=== PATIENT | female | born 1960 | race Caucasian/White ===

== ENCOUNTER 2016-10-10 20:36 | Emergency (ER) | payer OTHER ==
[2016-10-10 20:56] VITALS: BP 168/69; PULSE 62; TEMP 97.8; BMI 47.5
--- NOTE | 2016-10-10 20:59 | PDOC ---
History of Present Illness - History of Present Illness Initial Comments: 10/10/16 21:25 The patient is a 56 year old female, with no significant past medical history, who presents to the emergency department with pain to her right elbow, left shoulder, lower back and neck pain s/p falling on 10/06/16. The patient states a clear mat slipped from under her at work and fell onto her right elbow. She states she fell straight down, also hitting the back of her head on the wall in a whip-lash motion. She denies loss of consciousness. She denies pain to her head following the incident but reports a soreness to the back of her neck. She states her neck pain does not radiate to her upper extremities, however, she does report pain to her left shoulder from hitting the shoulder on the wall. 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 She denies lower extremity numbness or tingling She denies chest pain, shortness of breath, headache and dizziness. She denies fever, chills, nausea, vomit, diarrhea and constipation. She denies dysuria, frequency, urgency and hematuria. PAST MEDICAL HISTORY: no significant history PAST SURGICAL HISTORY: no significant history FAMILY HISTORY: no pertinent history SOCIAL HISTORY: Pt lives with family and is employed. MEDICATIONS: reviewed ALLERGIES: As per nursing notes ROS General: No fevers or chills, no weakness, no weight loss HEENT: No change in vision. No sore throat,. No ear pain CardioVascular: No chest pain or shortness of breath Respiratory:No cough, or wheezing. Gastrointestinal: no nausea, vomiting, diarrhea or constipation, No rectal bleeding Genitourinary: No dysuria, hematuria, or frequency Musculoskeletal: (+) right elbow and left shoulder pain. posterior neck and low back discomfort. No joint swelling Neurologic: No headache, vertigo, dizziness or loss of consciousness Psychiatric: nor depression Skin: No rashes or easy bruising Endocrine: no increased thirst or abnormal weight change Allergic: no skin or latex allergy All other systems reviewed and normal Physical Exam: General: Well-nourished well-developed individual, no acute distress HEENT: Throat: Normal, tonsils normal, no erythema or exudate Neck: Supple, no meningeal signs, no lymphadenopathy Eyes::Pupils equal reactive and round, extraocular motion intact Chest: Nontender to palpation Cardiac: S1-S2 normal, regular rate and rhythm, no murmurs rubs or gallops Respiratory: Lungs clear to auscultation bilateral Abdomen: Soft, non-distended, normal bowel sounds, nontender to palpation diffusely Extremities: (+) ttp to superior left shoulder and right medial elbow. No cervical, thoracic or lumbar tenderness to palpation Warm, dry, no cyanosis, clubbing, or edema Skin: (+) incidental moderate eczema noted in all extremities. Neuro: Alert and oriented x3, nonfocal exam, grossly intact, normal gait Psych: Normal mood and affect <Bre Franco - Last Filed: 10/10/16 21:39> - General History Source: Patient Exam Limitations: No Limitations - History of Present Illness Initial Comments: 10/10/16 22:22 A portion of this note was documented by scribe services under my direction. I have reviewed the details of the note, within reason, and agree with the documentation. The case summary and management plan written by me. X-rays reviewed by me Left shoulder no acute fracture or dislocation Right elbow no acute fracture dislocation Assessment and plan: This is a 56-year-old female who fell 4 days ago and now comes in for evaluation. Patient had some soreness of her back and neck however no bony tenderness. There was some bony tenderness of her right elbow and left shoulder so x-rays were done that were negative for any acute pathology. Patient told to continue to take Aleve and follow-up with her primary care doctor as needed. Patient discharged home. <Clyde Antoine I - Last Filed: 10/10/16 22:24> - General Chief Complaint: Injury Stated Complaint: FALL Time Seen by Provider: 10/10/16 20:58 Past History <Bre Franco - Last Filed: 10/10/16 21:39> - Past Medical History HTN: Yes - Surgical History Abdominal Surgery: Yes (UTERINE EMBOLIZATION 2011) - Immunization History Immunization Up to Date: Yes - Psycho/Social/Smoking Cessation Hx Anxiety: No Suicidal Ideation: No Smoking Status: Yes Smoking History: Never smoked Number of Cigarettes Smoked Daily: 0 <Clyde Antoine I - Last Filed: 10/10/16 22:24> - Past Medical History Allergies/Adverse Reactions: Allergies Allergy/AdvReac Type Severity Reaction Status Date / Time Penicillins Allergy Verified 06/18/12 12:16 Home Medications: Ambulatory Orders Atenolol [Tenormin] 100 mg PO DAILY 06/18/12 Metformin HCl 500 mg PO BID 10/10/16 Naproxen Sodium [Aleve] 440 mg PO ONCE 10/10/16 *Physical Exam - Vital Signs Last Vital Signs Temp Pulse Resp BP Pulse Ox 97.8 F 62 16 168/69 97 10/10/16 20:54 10/10/16 20:54 10/10/16 20:54 10/10/16 20:54 10/10/16 20:54 <Bre Franco - Last Filed: 10/10/16 21:39> - Vital Signs Last Vital Signs Temp Pulse Resp BP Pulse Ox 97.8 F 62 16 168/69 97 10/10/16 20:54 10/10/16 20:54 10/10/16 20:54 10/10/16 20:54 10/10/16 20:54 <Clyde Antoine I - Last Filed: 10/10/16 22:24> *DC/Admit/Observation/Transfer - Attestations Scribe Attestion: 10/10/16 21:27 Documentation prepared by Bre Franco, acting as medical laboratory technicians for Clyde Antoine MD <Bre Franco - Last Filed: 10/10/16 21:39> - Discharge Dispostion Admit: No <Clyde Antoine I - Last Filed: 10/10/16 22:24> Diagnosis at time of Disposition: Strain of left shoulder Qualifiers: Encounter type: initial encounter Qualified Code(s): S46.912A - Strain of unspecified muscle, fascia and tendon at shoulder and upper arm level, left arm , initial encounter Strain of right elbow Qualifiers: Encounter type: initial encounter Qualified Code(s): S56.911A - Strain of unspecified muscles, fascia and tendons at forearm level, right arm, initial encounter Back strain Qualifiers: Encounter type: initial encounter Qualified Code(s): S39.012A - Strain of muscle, fascia and tendon of lower back, initial encounter - Discharge Dispostion Disposition: HOME Condition at time of disposition: Stable - Referrals Referrals: STAFF,NOT ON [Primary Care Provider] - - Patient Instructions Additional Instructions: Your x-rays were all negative for any acute fractures or pathology Tylenol or Aleve as needed for the pain. Return to the emergency department immediately with ANY new, persistent or worsening symptoms. Continue any medications as previously prescribed by your physician. You should follow up with your primary doctor as soon as possible regarding today's emergency department visit. . Please make sure your doctor reviews the results of your emergency evaluation. Thank you for coming to the Emergency Department today for your care. It was a pleasure to see you today. Please note that your evaluation is INCOMPLETE until you follow-up with your doctor.
== END 2016-10-10 22:27 | disposition home or self-care (01) ==
LOC: FER 20:36
DX: S46.912A Strain of unspecified muscle, fascia and tendon at shoulder and upper arm level, left arm, initial encounter (principal); S56.911A Strain of unspecified muscles, fascia and tendons at forearm level, right arm, initial encounter; S39.012A Strain of muscle, fascia and tendon of lower back, initial encounter; W18.39XA Other fall on same level, initial encounter; Y93.89 Activity, other specified; Y92.9 Unspecified place or not applicable; Y99.0 Civilian activity done for income or pay; I10 Essential (primary) hypertension
CPT/HCPCS: 73030-TC-LT; 73070-TC-RT; 99281-25

== ENCOUNTER 2019-01-30 16:57 | Inpatient (IN) | payer OTHER ==
[2019-01-30] MEDS ORDERED: SODIUM CHLORIDE 1,000 ML IV STA (17:24)
--- NOTE | 2019-01-30 17:43 | PDOC ---
History of Present Illness - General History Source: Patient Exam Limitations: No Limitations - History of Present Illness Initial Comments: 01/30/19 17:40 58y F with PMH of Plaque Psoriasis, HTN, NIDDM, HLD presenting to ED with complaints of malaise, fever and urinary symptoms. She started Taltz therapy for psoriasis 3w ago on 01/07 and got injections again last week. She says that a day after the injections last week she had fevers and generalized malaise. This resolved on its own and she went to work Sunday and Sunday without any symptoms. Yesterday she states she had a fever of 101 at night and a low grade fever this AM. Also endorses urinary urgency and dysuria this AM. Denies cough, chest pain, headache, congestion, sore throat, back pain, n/v/d, abdominal pain , sick contacts. She works as a dentist. PMD: PMH: see hpi Meds: see med reca Allergies: PCN (hives) <Nissa Olson - Last Filed: 01/30/19 19:13> <Shantel García - Last Filed: 02/01/19 07:37> - General Chief Complaint: Allergic Reaction Stated Complaint: FEVER. REACTION TO TALTZ? Time Seen by Provider: 01/30/19 17:12 Past History - Past Medical History COPD: No Diabetes: Yes HTN: Yes Hypercholesterolemia: Yes Other medical history: PSORIASIS - Surgical History Abdominal Surgery: Yes (UTERINE EMBOLIZATION 2011) Appendectomy: Yes - Immunization History Immunization Up to Date: Yes - Psycho Social/Smoking Cessation Hx Smoking Status: Yes Smoking History: Never smoked Number of Cigarettes Smoked Daily: 0 Hx Alcohol Use: No Drug/Substance Use Hx: No <Nissa Olson - Last Filed: 01/30/19 19:13> <Shantel García - Last Filed: 02/01/19 07:37> - Past Medical History Allergies/Adverse Reactions: Allergies Allergy/AdvReac Type Severity Reaction Status Date / Time Penicillins Allergy Verified 01/30/19 17:22 Home Medications: Ambulatory Orders Atenolol [Tenormin] 100 mg PO DAILY 06/18/12 Naproxen Sodium [Aleve] 440 mg PO ONCE 10/10/16 metFORMIN HCL [Metformin HCl] 500 mg PO BID 10/10/16 Atorvastatin Ca [Lipitor] 20 mg PO DAILY 01/30/19 Hctz 25Mg/Triamterene [Dyazide 25/37.5MG -] 1 cap PO DAILY 01/30/19 Ixekizumab [Taltz Autoinjector] 80 mg SQ ONCE 01/30/19 Ixekizumab [Taltz Autoinjector] 160 mg SQ ONCE 01/30/19 Losartan Potassium 50 mg PO HS 01/30/19 Sulfamethoxazole/Trimethoprim [Bactrim Ds Tablet] 1 each PO BID 10 Days #20 tablet 01/30/19 Review of Systems - Review of Systems Constitutional: Yes: Chills, Fever, Loss of Appetite, Malaise HEENTM: No: Symptoms Reported Respiratory: No: Symptoms reported Cardiac (ROS): No: Symptoms Reported ABD/GI: Yes: Nausea : Yes: See HPI Musculoskeletal: No: Symptoms Reported Integumentary: No: Symptoms Reported Neurological: No: Symptoms reported <Nissa Olson - Last Filed: 01/30/19 19:13> *Physical Exam - Vital Signs Last Vital Signs Temp Pulse Resp BP Pulse Ox 99.3 F 64 16 119/52 L 98 01/30/19 17:10 01/30/19 17:10 01/30/19 17:10 01/30/19 17:10 01/30/19 17:10 - Physical Exam General Appearance: Yes: Appropriately Dressed, Obese. No: Apparent Distress HEENT: positive: EOMI, THERESA, Pharynx Normal Neck: positive: Trachea midline, Supple. negative: Lymphadenopathy (R), Lymphadenopathy (L) Respiratory/Chest: positive: Lungs Clear, Normal Breath Sounds. negative: Crackles, Rales, Rhonchi, Stridor, Wheezing Cardiovascular: positive: Regular Rhythm, Regular Rate, S1, S2. negative: Edema , JVD, Murmur Vascular Pulses: Dorsalis-Pedis (R): 2+, Doralis-Pedis (L): 2+ Gastrointestinal/Abdominal: positive: Normal Bowel Sounds, Soft. negative: Guarding, Rebound, Tenderness Musculoskeletal: negative: CVA Tenderness Extremity: negative: Pedal Edema, Swelling, Calf Tenderness Integumentary: positive: Normal Color, Dry, Warm. negative: Mottled, Petechiae , Rash Neurologic: positive: sleeper cutter II-XII NML intact, Fully Oriented, Alert, Normal Mood/ Affect, Normal Response, Motor Strength 5/5 <Nissa Olson - Last Filed: 01/30/19 19:13> - Vital Signs Last Vital Signs Temp Pulse Resp BP Pulse Ox 97.9 F 69 18 147/56 L 100 02/01/19 06:00 02/01/19 06:00 02/01/19 06:00 02/01/19 06:00 02/01/19 06:00 <GarcíaShantel Ryan - Last Filed: 02/01/19 07:37> ED Treatment Course - LABORATORY CBC & Chemistry Diagram: 01/30/19 17:50 01/30/19 17:50 - RADIOLOGY Radiology Studies Ordered: Category Date Time Status CHEST PA & LAT [RAD] Stat Radiology 01/30/19 17:24 Ordered <Nissa Olson - Last Filed: 01/30/19 19:13> - LABORATORY CBC & Chemistry Diagram: 01/31/19 07:25 01/31/19 07:25 - ADDITIONAL ORDERS Additional order review: 01/30/19 18:30 Blood Culture - Preliminary Blood - Peripheral Venous NO GROWTH OBTAINED AFTER 24 HOURS, INCUBATION TO CONTINUE FOR 4 DAYS. 01/30/19 18:45 Blood Culture - Preliminary Blood - Peripheral Venous NO GROWTH OBTAINED AFTER 24 HOURS, INCUBATION TO CONTINUE FOR 4 DAYS. 01/30/19 17:50 RBC 3.96 MCV 89.3 MCHC 33.2 RDW 13.3 MPV 8.3 Neutrophils % 80.5 Lymphocytes % 10.6 Monocytes % 6.5 Eosinophils % 0.2 Basophils % 2.2 H - Medications Given in the ED: ED Medications Discontinued Medications Generic Name Dose Route Start Last Admin Trade Name Estebanq PRN Reason Stop Dose Admin Acetaminophen 975 mg 01/30/19 19:12 01/30/19 19:20 Tylenol - PO 01/30/19 19:13 975 mg ONCE ONE Administration Acetaminophen 1,000 mg 01/31/19 06:52 01/31/19 07:03 Ofirmev Injection - IVPB 01/31/19 06:53 1,000 mg ONCE ONE Administration Acetaminophen 1,000 mg 01/31/19 21:30 01/31/19 21:21 Ofirmev Injection - IVPB 01/31/19 21:31 1,000 mg ONCE ONE Administration Sodium Chloride 1,000 mls @ 1,000 mls/hr 01/30/19 17:24 01/30/19 18:15 Normal Saline - IV 01/30/19 18:23 1,000 mls/hr ASDIR STA Administration Ceftriaxone Sodium 1,000 mg/ 50 mls @ 100 mls/hr 01/30/19 18:40 01/30/19 18: 53 Dextrose IVPB 01/30/19 19:09 Not Given ONCE ONE Ondansetron HCl 4 mg 01/30/19 18:15 01/30/19 18:30 Zofran Injection IVPB 01/30/19 18:16 4 mg ONCE ONE Administration Trimethoprim/Sulfamethoxazole 1 each 01/30/19 18:55 01/30/19 19:10 Bactrim Ds - PO 01/30/19 18:56 1 each ONCE ONE Administration <Shantel García - Last Filed: 02/01/19 07:37> Medical Decision Making - Medical Decision Making 01/30/19 18:30 58y F presenting to ED with complaints of fever and malaise. Is currently on interleukin monoclonal antibody therapy 80mg with last dose 1w ago. gets therapy q2W. ddx includes but not limited to sepsis, uti, uri, fungal infection, viral syndrome. low suspicion for flu. orderd cbc, cmp, ua, ucx, cxr iv fluids. urines have LE, bili, 2+ protein and ketones. wbc 18. chem hemolyzed, will redraw with blood cultures. cxr: no infiltrate or consolidations. 01/30/19 19:01 UA positive for infection. given that patient is on immunomodulator therapy, has fever, white count and source, will benefit from admission for iv abx. pt refusing to stay. pt warned about adverse events from leaving hospital including multi organ failure, sepsis, hematogenous spread of infection, abscess , . pt understands and wants to leave. Will give Bactrim here in ED send rx to pharmacy. will give return precautions. <Nissa Olson - Last Filed: 01/30/19 19:13> Discharge - Discharge Information Problems reviewed: Yes <Nissa Olson - Last Filed: 01/30/19 19:13> <Shantel García - Last Filed: 11/02/19 07:37> - Discharge Information Clinical Impression/Diagnosis: Malaise Fever Qualifiers: Fever type: unspecified Qualified Code(s): R50.9 - Fever, unspecified UTI (urinary tract infection) Qualifiers: Urinary tract infection type: site unspecified Hematuria presence: without hematuria Qualified Code(s): N39.0 - Urinary tract infection, site not specified Condition: Stable - Patient Discharge Instructions Additional Instructions: Discharge instructions for patients AMA you are choosing to leave against medical advice (AMA) you have capacity to make medical decisions. you are of sound mind and competent to refuse medical care. you demonstrate a normal mental capacity to make decisions regarding their healthcare. The patient is clinically sober and does not appear to be under the influence of any illicit drugs at this time. you have been advised of the risks, in layman terms, of leaving AMA which include, but are not limited to cardiac arrest, severe infection, blood stream infection, dehydration, worsening bleeding, liver failure, arrhythmia, respiratory failure, delay in diagnosis and management, loss of current lifestyle, loss of functional status, multiorgan failure, coma, severe disability and . Alternatives have been offered - you are given referrals for specialists to see for your presentation. you have been advised that should they change their mind they are welcome to return to this hospital, or any other , at any time. you understand that in no way does an AMA discharge mean that I do not want them to have the best medical care available. To this end, I have provided appropriate prescriptions, referrals, and discharge instructions. you signed AMA paperwork. The above discussion was witnessed by another member of staff, CYNDY
[2019-01-30 18:01] LABS: BASO % 2.2 % (0-2.0); EOS % 0.2 % (0-4.5); HEMATOCRIT 35.4 % (32.4-45.2); HEMOGLOBIN 11.7 GM/dl (10.7-15.3); LYMPH % 10.6 % (8-40); MCH 29.6 pg (25.7-33.7); MCHC 33.2 g/dl (32.0-36.0); MEAN CELL VOLUME 89.3 fl (80-96); MEAN PLT VOLUME 8.3 fl (7.5-11.1); MONO % 6.5 % (3.8-10.2); NEUT % 80.5 % (42.8-82.8); PLATELET COUNT 304 K/MM3 (134-434); RBC 3.96 M/mm3 (3.60-5.2); RDW 13.3 % (11.6-15.6); WHITE BLOOD COUNT 18.2 K/mm3 (4.0-10.8)
[2019-01-30] MEDS ORDERED: ONDANSETRON 4 MG/2 ML VIAL IVPB ONE (18:15)
[2019-01-30] MEDS ORDERED: ONDANSETRON 4 MG/2 ML VIAL ONE (18:20)
--- NOTE | 2019-01-30 18:21 | PDOC ---
Attending Attestation - Resident Resident Name: WhitneyNissa - ED Attending Attestation I have performed the following: I have examined & evaluated the patient, The case was reviewed & discussed with the resident, I agree w/resident's findings & plan - HPI HPI: 01/30/19 18:21 58y F with PMH of Plaque Psoriasis, HTN, NIDDM, HLD presenting to ED with complaints of malaise, fever and urinary symptoms. She started Taltz therapy ( interleukin inhibitor) for psoriasis 3w ago on 01/07 and got injections again last week. She says that a day after the injections last week she had fevers and generalized malaise. Yesterday she states she had a fever of 101 at night and a low grade fever this AM. Also endorses urinary urgency and dysuria this AM. Denies cough, chest pain, headache, congestion, sore throat, back pain, n/v/ d, abdominal pain, sick contacts or travel history - Physicial Exam PE: 01/30/19 18:22 Agree with the resident's HPI and PE as documented in the electronic medical record. NAD, well appearing, EOMI, PERRL, nl conjunctiva, anicteric; neck supple. lungs clear, RRR, abdomen soft nontender, obese. no rebound, guarding. Back nontender. ARREDONDO x4, no focal neuro deficits. No peripheral edema. normal color for ethnicity, WWP. no rash 01/30/19 18:52 - Medical Decision Making 01/30/19 18:22 Vital Signs Temp Pulse Resp BP Pulse Ox 99.3 F 64 16 119/52 L 98 01/30/19 17:10 01/30/19 17:10 01/30/19 17:10 01/30/19 17:10 01/30/19 17:10 Vital signs noted for low-grade fevers, otherwise normotensive, normal sats and no tachycardia noted. Differential diagnosis for fever includes UTI, pneumonia , viral syndrome, bacteremia, pyelonephritis, medication side effect. electrolyte/metabolic derangements. She is on a new immunosuppressant drug called Taltz with a side effect profile that can increase potential risk for infection. Will obtain cultures of urine and blood, basic labs and reassess. Chest x-ray appears clear negative for any kind of infection or pneumonia. Leukocytosis is noted at 18,000, no priors to compare to which could be an indicator for infection/inflammation. Laboratory results noted for leukocytosis. Urinalysis appears to correlate with urinary tract infection. She has no abdominal tenderness or CVA tenderness to suggest upper ascending infection. Cultures have been drawn will pend. She is also allergic to cephalosporins due to cross-reactivity with penicillin's where she gets hives so will treat with Bactrim instead. Patient does have some risk factors for severe systemic infection given her fever and immunocompromise state and leukocytosis due to her diabetes, plaque psoriasis requiring immunomodulators and medical comorbidities. Discussed with patient she can be offered observation admission for immunocompromised fever/ cultures, abx and supportive management, will consider but elects not to stay. AMA paperwork initially signed out. pt wanted to complete her fluids, return chemistries and tylenol for spiking fever s/o Dr Gonzalez pending completion 02/01/19 07:35 Discharge - Discharge Information Problems reviewed: Yes Clinical Impression/Diagnosis: Malaise Fever Qualifiers: Fever type: unspecified Qualified Code(s): R50.9 - Fever, unspecified UTI (urinary tract infection) Qualifiers: Urinary tract infection type: site unspecified Hematuria presence: without hematuria Qualified Code(s): N39.0 - Urinary tract infection, site not specified Condition: Stable - Additional Discharge Information - Follow up/Referral - Patient Discharge Instructions - Post Discharge Activity
[2019-01-30 18:33] LABS: EPITHELIAL CELLS MODERATE /hpf
[2019-01-30] MEDS ORDERED: CEFTRIAXONE 1,000 MG in DEXTROSE 5%-WATER - 50 ML IVPB ONE (18:40)
[2019-01-30] MEDS ORDERED: SULFAMETHOXAZOLE/TRIMETHOPRIM 800MG/160MG D.S. TABLET PO ONE (18:55)
[2019-01-30 18:57] LABS: ALBUMIN 3.9 g/dl (3.4-5.0); BILIRUBIN,TOTAL 1.1 mg/dl (0.2-1); CALCIUM 8.8 mg/dl (8.5-10); CREATININE 2.5 mg/dl (0.55-1.3); POTASSIUM 4.1 mmol/L (3.5-5.1); TOT PROT 7.5 g/dl (6.4-8.2)
[2019-01-30] MEDS ORDERED: SULFAMETHOXAZOLE/TRIMETHOPRIM 800MG/160MG D.S. TABLET ONE (19:09)
[2019-01-30] MEDS ORDERED: ACETAMINOPHEN 325 MG TABLET (FP) PO ONE (19:12)
[2019-01-30] MEDS ORDERED: ACETAMINOPHEN 500 MG TABLET (FP) ONE (19:20)
--- NOTE | 2019-01-30 20:40 | PDOC ---
*Physical Exam - Vital Signs Last Vital Signs Temp Pulse Resp BP Pulse Ox 100.8 F H 64 16 119/52 L 98 01/30/19 18:53 01/30/19 17:10 01/30/19 17:10 01/30/19 17:10 01/30/19 17:10 ED Treatment Course - LABORATORY CBC & Chemistry Diagram: 01/30/19 17:50 01/30/19 18:30 - ADDITIONAL ORDERS Additional order review: Laboratory Results 01/30/19 01/30/19 01/30/19 18:30 17:50 17:30 Sodium 135 L Cancelled Potassium 4.1 Cancelled Chloride 93 L Cancelled Carbon Dioxide 26 Cancelled Anion Gap 16 Cancelled BUN 32.0 H Cancelled Creatinine 2.5 H Cancelled Est GFR (CKD-EPI)AfAm 23.42 Cancelled Est GFR (CKD-EPI)NonAf 20.21 Cancelled Random Glucose 124 H Cancelled Calcium 8.8 Cancelled Total Bilirubin 1.1 H Cancelled AST 14 L Cancelled ALT 18 Cancelled Alkaline Phosphatase 101 Cancelled Total Protein 7.5 Cancelled Albumin 3.9 Cancelled Urine Color Yellow Urine Appearance Slightly Urine pH 5.0 Urine Protein 2+ H Urine Glucose (UA) Negative Urine Ketones 1+ H Urine Blood Negative Urine Nitrite Negative Urine Bilirubin 2+ H Urine Urobilinogen 1.0 Ur Leukocyte Esterase Trace H Urine RBC 0-2 Urine WBC 5-10 Ur Transition Epith Cell Moderate Urine Bacteria Moderate 01/30/19 17:50 RBC 3.96 MCV 89.3 MCHC 33.2 RDW 13.3 MPV 8.3 Neutrophils % 80.5 Lymphocytes % 10.6 Monocytes % 6.5 Eosinophils % 0.2 Basophils % 2.2 H - Medications Given in the ED: ED Medications Discontinued Medications Generic Name Dose Route Start Last Admin Trade Name Freq PRN Reason Stop Dose Admin Acetaminophen 975 mg 01/30/19 19:12 01/30/19 19:20 Tylenol - PO 01/30/19 19:13 975 mg ONCE ONE Administration Sodium Chloride 1,000 mls @ 1,000 mls/hr 01/30/19 17:24 01/30/19 18:15 Normal Saline - IV 01/30/19 18:23 1,000 mls/hr ASDIR STA Administration Ceftriaxone Sodium 1,000 mg/ 50 mls @ 100 mls/hr 01/30/19 18:40 01/30/19 18: 53 Dextrose IVPB 01/30/19 19:09 Not Given ONCE ONE Ondansetron HCl 4 mg 01/30/19 18:15 01/30/19 18:30 Zofran Injection IVPB 01/30/19 18:16 4 mg ONCE ONE Administration Trimethoprim/Sulfamethoxazole 1 each 01/30/19 18:55 01/30/19 19:10 Bactrim Ds - PO 01/30/19 18:56 1 each ONCE ONE Administration ED Progress Note - Progress Note Progress Note: 01/30/19 20:38 Patient initially was signed out AGAINST MEDICAL ADVICE and then changed her mind after I came on duty. Patient will be admitted to an inpatient bed for urosepsis and was given Bactrim. IV as ceftriaxone was ordered however patient refused it. Patient's history is significant because she is immunocompromised secondary to her diabetes as well as Taltz. Patient will be admitted to an inpatient bed via the hospitalist service. Discharge - Discharge Information Problems reviewed: Yes Clinical Impression/Diagnosis: Malaise Fever Qualifiers: Fever type: unspecified Qualified Code(s): R50.9 - Fever, unspecified UTI (urinary tract infection) Qualifiers: Urinary tract infection type: site unspecified Hematuria presence: without hematuria Qualified Code(s): N39.0 - Urinary tract infection, site not specified Condition: Stable - Admission Yes - Additional Discharge Information Prescriptions: Sulfamethoxazole/Trimethoprim [Bactrim Ds Tablet] 1 each PO BID 10 Days #20 tablet - Follow up/Referral Referrals: Sergio Peña MD [Primary Care Provider] - - Patient Discharge Instructions Additional Instructions: Discharge instructions for patients AMA you are choosing to leave against medical advice (AMA) you have capacity to make medical decisions. you are of sound mind and competent to refuse medical care. you demonstrate a normal mental capacity to make decisions regarding their healthcare. The patient is clinically sober and does not appear to be under the influence of any illicit drugs at this time. you have been advised of the risks, in layman terms, of leaving AMA which include, but are not limited to cardiac arrest, severe infection, blood stream infection, dehydration, worsening bleeding, liver failure, arrhythmia, respiratory failure, delay in diagnosis and management, loss of current lifestyle, loss of functional status, multiorgan failure, coma, severe disability and . Alternatives have been offered - you are given referrals for specialists to see for your presentation. you have been advised that should they change their mind they are welcome to return to this hospital, or any other , at any time. you understand that in no way does an AMA discharge mean that I do not want them to have the best medical care available. To this end, I have provided appropriate prescriptions, referrals, and discharge instructions. you signed AMA paperwork. The above discussion was witnessed by another member of staff, RN - Post Discharge Activity
[2019-01-30] MEDS ORDERED: MEROPENEM 1 GM VIAL (RESTRICTED TO ID) IVPB ONE (21:56)
[2019-01-30] MEDS ORDERED: DEXTROSE 5%-WATER 100 ML IVPB ONE (21:56)
[2019-01-30] MEDS: MEROPENEM 1 GM in DEXTROSE 5%-WATER 100 ML IVPB SCH (22:00)
--- NOTE | 2019-01-30 22:01 | HP ---
Admitting History and Physical - Admission History of Present Illness: This is a 58 y/o woman with a PMHx of Plaque Psoriasis (on Taltz), HTN, NIDDM, HLD. Who presents to the ED with complaints of malaise, fever and urinary symptoms. Patient reports starting Taltz therapy for psoriasis 3weeks ago (01/07) , and had injections again, last week. Patient reports that a day after the injections last week, she had fevers and generalized malaise. This resolved on its own, and she went to work Sunday and Sunday without any symptoms. Yesterday , she reports subjective fever 101, at night and a low grade fever this morning. Patient reports having urgency and dysuria this morning. Patient denies cough, headache, congestion, sore throat, CP, AP, back pain, n/v/d, constipation, and recent sick contacts. Patient is employed as a Dentist. History Source: Patient Limitations to Obtaining History: No Limitations - Past Medical History Cardiovascular: Yes: HTN, Hyperlipdemia Endocrine: Yes: Diabetes Mellitus Dermatology: Yes: Psoriasis (Plaque) - Past Surgical History Past Surgical History: Yes: Appendectomy Additional Past Surgical History: Uterine Embolization (2011) - Smoking History Smoking history: Never smoked Aproximately how many cigarettes per day: 0 - Alcohol/Substance Use Hx Alcohol Use: No History of Substance Use: reports: None - Social History Usual Living Arrangement: Yes: With Spouse Do you think of yourself as: Straight/Heterosexual ADL: Independent Occupation: Dentist History of Recent Travel: No Home Medications - Allergies Allergies/Adverse Reactions: Allergies Allergy/AdvReac Type Severity Reaction Status Date / Time Penicillins Allergy Verified 01/30/19 17:22 - Home Medications Home Medications: Ambulatory Orders Atenolol [Tenormin] 100 mg PO DAILY 06/18/12 Naproxen Sodium [Aleve] 440 mg PO ONCE 10/10/16 metFORMIN HCL [Metformin HCl] 500 mg PO BID 10/10/16 Atorvastatin Ca [Lipitor] 20 mg PO DAILY 01/30/19 Hctz 25Mg/Triamterene [Dyazide 25/37.5MG -] 1 cap PO DAILY 01/30/19 Ixekizumab [Taltz Autoinjector] 80 mg SQ ONCE 01/30/19 Ixekizumab [Taltz Autoinjector] 160 mg SQ ONCE 01/30/19 Losartan Potassium 50 mg PO HS 01/30/19 Sulfamethoxazole/Trimethoprim [Bactrim Ds Tablet] 1 each PO BID 10 Days #20 tablet 01/30/19 Family Medical History Family History: Unremarkable Review of Systems - Review of Systems Constitutional: reports: Chills, Malaise, Weakness Eyes: reports: No Symptoms HENT: reports: No Symptoms Neck: reports: No Symptoms Cardiovascular: reports: No Symptoms Respiratory: reports: No Symptoms Gastrointestinal: reports: No Symptoms, Nausea, Other (dysuria) Breasts: reports: No Symptoms Reported Musculoskeletal: reports: No Symptoms Integumentary: reports: No Symptoms Neurological: reports: Headache Endocrine: reports: No Symptoms Hematology/Lymphatic: reports: No Symptoms Psychiatric: reports: No Symptoms Pain Intensity: 7 Physical Examination Vital Signs: Vital Signs Temperature 98.7 F 01/30/19 21:00 Pulse Rate 62 01/30/19 21:00 Respiratory Rate 18 01/30/19 21:00 Blood Pressure 95/50 L 01/30/19 21:00 O2 Sat by Pulse Oximetry (%) 98 01/30/19 21:00 Constitutional: Yes: Well Nourished, No Distress, Calm, Obese (Severe) Eyes: Yes: WNL, EOM Intact HENT: Yes: WNL, Normocephalic, Nasal Congestion Neck: Yes: Trachea Midline Cardiovascular: Yes: Pulse Irregular Respiratory: Yes: Diminished, On Nasal O2 Gastrointestinal: Yes: WNL ...Rectal Exam: Yes: Deferred Renal/: Yes: CVA Tenderness - Right Breast(s): Yes: WNL Musculoskeletal: Yes: WNL Extremities: Yes: WNL Edema: No Peripheral Pulses WNL: Yes Integumentary: Yes: WNL Neurological: Yes: WNL, Alert, Oriented ...Motor Strength: WNL Psychiatric: Yes: WNL, Alert, Oriented Labs: CBC, BMP 01/30/19 17:50 01/30/19 18:30 Imaging - Results Chest X-ray: Image Reviewed EKG: Image Reviewed (NSR no ST or TWI, QTc 466) Problem List - Problems (1) Sepsis Assessment/Plan: Likely due to UTI qSOFA 2 Blood cultures x2-pending Urine culture-pending WBC 18.0, likely due to inflammatory process on Taltz for plaque psoriasis vs infectous Will monitor CBC and BMP Lactic Acid 0.9, nl Fluid bolus given in ED Continue gentle IVF Bactrim, Ceftriaxone given in ED Appreciate ID consult, pt is PCN allergic Tylenol prn Code(s): A41.9 - SEPSIS, UNSPECIFIED ORGANISM (2) UTI (urinary tract infection) Assessment/Plan: See above Code(s): N39.0 - URINARY TRACT INFECTION, SITE NOT SPECIFIED Qualifiers: Urinary tract infection type: site unspecified Hematuria presence: without hematuria Qualified Code(s): N39.0 - Urinary tract infection, site not specified (3) Malaise Assessment/Plan: Likely due to recent infusion treatment vs UTI IVF Monitor closely Code(s): R53.81 - OTHER MALAISE (4) Severe obesity (BMI >= 40) Code(s): E66.01 - MORBID (SEVERE) OBESITY DUE TO EXCESS CALORIES Assessment/Plan This is a 58 y/o woman with a PMHx of HTN, Plaque Psoriasis, Severe Obesity. Admitted for Urosepsis secondary to UTI, for further evaluation of their emergent condition. Plan: See Problem List FEN PO fluids as tolerated Replete lytes prn Low Na Diet DVT ppx OOB SCDs Heparin SQ Code Status: Full Code Dispo: Requires Inpatient Care Visit type - Emergency Visit Emergency Visit: Yes ED Registration Date: 01/30/19 Care time: The patient presented to the Emergency Department on the above date and was hospitalized for further evaluation of their emergent condition. - New Patient This patient is new to me today: Yes Date on this admission: 01/30/19 - Critical Care Critical Care patient: No
[2019-01-31] MEDS ORDERED: ONDANSETRON 4 MG/2 ML VIAL IVPUSH PRN (06:52)
[2019-01-31] MEDS ORDERED: ACETAMINOPHEN 1000 MG/100 ML VIAL (NON FORMULARY) IVPB ONE ×3 (06:52→21:30)
[2019-01-31] MEDS: SODIUM CHLORIDE 1,000 ML IV SCH (07:10)
[2019-01-31 08:14] LABS: BASO % 0.3 % (0-2.0); EOS % 0.3 % (0-4.5); HEMATOCRIT 30.8 % (32.4-45.2); HEMOGLOBIN 10.6 GM/dl (10.7-15.3); LYMPH % 7.8 % (8-40); MCH 30.8 pg (25.7-33.7); MCHC 34.4 g/dl (32.0-36.0); MEAN CELL VOLUME 89.4 fl (80-96); MEAN PLT VOLUME 8.8 fl (7.5-11.1); MONO % 8.5 % (3.8-10.2); NEUT % 83.1 % (42.8-82.8); PLATELET COUNT 224 K/MM3 (134-434); RBC 3.45 M/mm3 (3.60-5.2); RDW 13.5 % (11.6-15.6); WHITE BLOOD COUNT 15.7 K/mm3 (4.0-10.8)
[2019-01-31 08:31] LABS: CALCIUM 8.2 mg/dl (8.5-10); CREATININE 2.1 mg/dl (0.55-1.3); POTASSIUM 3.7 mmol/L (3.5-5.1)
[2019-01-31] MEDS ORDERED: DEXTROSE 5%-WATER 100 ML IVPB ONE ×2 (09:02→21:12)
[2019-01-31] MEDS ORDERED: MEROPENEM 1 GM VIAL (RESTRICTED TO ID) IVPB ONE ×2 (09:02→21:13)
--- NOTE | 2019-01-31 09:26 | PN ---
Physical Exam: SUBJECTIVE: Patient seen and examined OBJECTIVE: Patient is a 58 y/o woman with a PMHx of Plaque Psoriasis (on Taltz), HTN, NIDDM , HLD. Who presents to the ED with complaints of malaise, fever and urinary symptoms. Patient reports starting Taltz therapy for psoriasis 3weeks ago (01/07) , and had injections again, last week. Patient reports that a day after the injections last week, she had fevers and generalized malaise. This resolved on its own, and she went to work Sunday and Sunday without any symptoms and then developed a fevers of 101. Vital Signs Period Temp Pulse Resp BP Sys/Muir Pulse Ox Last 24 Hr 98.7 F-100.8 F 59-64 16-19 95-120/43-52 97-100 GENERAL: The patient is awake, alert, and fully oriented, in no acute distress. HEAD: Normal with no signs of trauma. EYES: PERRL, extraocular movements intact, sclera anicteric, conjunctiva clear. No ptosis. ENT: Ears normal, nares patent, oropharynx clear without exudates, moist mucous membranes. NECK: Trachea midline, full range of motion, supple. LUNGS: Breath sounds equal, clear to auscultation bilaterally, no wheezes, no crackles, no accessory muscle use. HEART: heart murmur ABDOMEN: obese abdomen EXTREMITIES: no edema. NEUROLOGICAL: Normal speech, gait not observed. PSYCH: Normal mood, normal affect. SKIN: Warm, dry, normal turgor, no rashes or lesions noted Laboratory Results - last 24 hr 01/30/19 01/30/19 01/30/19 17:30 17:50 17:50 WBC 18.2 H RBC 3.96 Hgb 11.7 Hct 35.4 MCV 89.3 MCH 29.6 MCHC 33.2 RDW 13.3 Plt Count 304 MPV 8.3 Absolute Neuts (auto) 14.7 Neutrophils % 80.5 Lymphocytes % 10.6 Monocytes % 6.5 Eosinophils % 0.2 Basophils % 2.2 H Sodium Cancelled Potassium Cancelled Chloride Cancelled Carbon Dioxide Cancelled Anion Gap Cancelled BUN Cancelled Creatinine Cancelled Est GFR (CKD-EPI)AfAm Cancelled Est GFR (CKD-EPI)NonAf Cancelled Random Glucose Cancelled Lactic Acid Calcium Cancelled Total Bilirubin Cancelled AST Cancelled ALT Cancelled Alkaline Phosphatase Cancelled Total Protein Cancelled Albumin Cancelled Urine Color Yellow Urine Appearance Slightly Urine pH 5.0 Urine Protein 2+ H Urine Glucose (UA) Negative Urine Ketones 1+ H Urine Blood Negative Urine Nitrite Negative Urine Bilirubin 2+ H Urine Urobilinogen 1.0 Ur Leukocyte Esterase Trace H Urine RBC 0-2 Urine WBC 5-10 Ur Transition Epith Cell Moderate Urine Bacteria Moderate 01/30/19 01/30/19 01/31/19 18:30 20:45 07:25 WBC 15.7 H RBC 3.45 L Hgb 10.6 L Hct 30.8 L MCV 89.4 MCH 30.8 MCHC 34.4 RDW 13.5 Plt Count 224 MPV 8.8 Absolute Neuts (auto) 13.2 Neutrophils % 83.1 H Lymphocytes % 7.8 L Monocytes % 8.5 Eosinophils % 0.3 Basophils % 0.3 Sodium 135 L Potassium 4.1 Chloride 93 L Carbon Dioxide 26 Anion Gap 16 BUN 32.0 H Creatinine 2.5 H Est GFR (CKD-EPI)AfAm 23.42 Est GFR (CKD-EPI)NonAf 20.21 Random Glucose 124 H Lactic Acid 0.9 Calcium 8.8 Total Bilirubin 1.1 H AST 14 L ALT 18 Alkaline Phosphatase 101 Total Protein 7.5 Albumin 3.9 Urine Color Urine Appearance Urine pH Urine Protein Urine Glucose (UA) Urine Ketones Urine Blood Urine Nitrite Urine Bilirubin Urine Urobilinogen Ur Leukocyte Esterase Urine RBC Urine WBC Ur Transition Epith Cell Urine Bacteria 01/31/19 07:25 WBC RBC Hgb Hct MCV MCH MCHC RDW Plt Count MPV Absolute Neuts (auto) Neutrophils % Lymphocytes % Monocytes % Eosinophils % Basophils % Sodium 136 Potassium 3.7 Chloride 98 Carbon Dioxide 27 Anion Gap 11 BUN 30.0 H Creatinine 2.1 H Est GFR (CKD-EPI)AfAm 28.92 Est GFR (CKD-EPI)NonAf 24.95 Random Glucose 179 H Lactic Acid Calcium 8.2 L Total Bilirubin AST ALT Alkaline Phosphatase Total Protein Albumin Urine Color Urine Appearance Urine pH Urine Protein Urine Glucose (UA) Urine Ketones Urine Blood Urine Nitrite Urine Bilirubin Urine Urobilinogen Ur Leukocyte Esterase Urine RBC Urine WBC Ur Transition Epith Cell Urine Bacteria Active Medications Generic Name Dose Route Start Last Admin Trade Name Freq PRN Reason Stop Dose Admin Acetaminophen 650 mg 01/31/19 01:30 Tylenol - PO Q6H PRN PAIN LEVEL 6-10 Atorvastatin Calcium 20 mg 01/31/19 22:00 Lipitor - PO HS OSKAR Meropenem 1 gm/ Dextrose 100 mls @ 0 mls/hr 01/30/19 21:45 01/30/19 22:00 IVPB 100 mls/hr Q12H OSKAR Administration As Directed Sodium Chloride 1,000 mls @ 60 mls/hr 01/31/19 01:30 Normal Saline - IV ASDIR OSKAR Ondansetron HCl 4 mg 01/31/19 06:52 01/31/19 07:02 Zofran Injection IVPUSH 4 mg Q6H PRN Administration NAUSEA ASSESSMENT/PLAN: Problem List - Problems (1) Fever Assessment/Plan: Likely due to UTI vs other source. WBC trending down Blood cultures pending Urine culture-pending WBC 18>15., likely due to inflammatory process on Taltz for plaque psoriasis vs infectious Will monitor CBC and BMP Lactic Acid 0.9, nl Continue gentle IVF continue antibiotics per ID Code(s): R50.9 - FEVER, UNSPECIFIED Qualifiers: Fever type: unspecified Qualified Code(s): R50.9 - Fever, unspecified (2) Malaise Assessment/Plan: monitor Code(s): R53.81 - OTHER MALAISE (3) Severe obesity (BMI >= 40) Assessment/Plan: would benefit from weight loss. bmi 47.7 Code(s): E66.01 - MORBID (SEVERE) OBESITY DUE TO EXCESS CALORIES (4) UTI (urinary tract infection) Assessment/Plan: urine culture pending Code(s): N39.0 - URINARY TRACT INFECTION, SITE NOT SPECIFIED Qualifiers: Urinary tract infection type: site unspecified Hematuria presence: without hematuria Qualified Code(s): N39.0 - Urinary tract infection, site not specified (5) Back strain Assessment/Plan: physical therapy Code(s): S39.012A - STRAIN OF MUSCLE, FASCIA AND TENDON OF LOWER BACK, INIT Qualifiers: Encounter type: initial encounter Qualified Code(s): S39.012A - Strain of muscle, fascia and tendon of lower back, initial encounter Visit type - Emergency Visit Emergency Visit: Yes ED Registration Date: 01/30/19 Care time: The patient presented to the Emergency Department on the above date and was hospitalized for further evaluation of their emergent condition. - New Patient This patient is new to me today: Yes Date on this admission: 01/31/19 - Critical Care Critical Care patient: No - Discharge Referral Referred to [facility] No
[2019-01-31] MEDS: MEROPENEM 1 GM in DEXTROSE 5%-WATER 100 ML IVPB SCH ×2 (10:10→21:40)
[2019-01-31] MEDS: ACETAMINOPHEN 325 MG TABLET (FP) PO PRN (13:10)
--- NOTE | 2019-01-31 14:00 | CON.ID ---
Consult Consult Specialty:: infectious diseases Referred by:: Cheo Reason for Consultation:: sepsis,fever - History of Present Illness Chief Complaint: weakness,fever History of Present Illness: This is a 58 y/o woman with a PMHx of Plaque Psoriasis (on Taltz), HTN, NIDDM, HLD. admitted with complaints of malaise, fever and urinary symptoms. Patient reports starting Taltz therapy for psoriasis 3weeks ago (01/07), and had injections again, last week. Patient reports that a day after the injections last week, she had fevers and generalized malaise. This resolved on its own, and she went to work Sunday and Sunday without any symptoms. Yesterday, she reports subjective fever 101, at night and a low grade fever this morning. Patient reports having urgency and dysuria this morning. Patient denies cough, headache, congestion, sore throat, CP, AP, back pain, n/v/d, constipation, and recent sick contacts. Patient is employed as a Dentist. patients in the room.currently she feels slightly better - History Source History Provided By: Patient Limitations to Obtaining History: No Limitations - Past Medical History Cardio/Vascular: Yes: HTN, Hyperlipdemia Endocrine: Yes: Diabetes Mellitus Dermatology: Yes: Psoriasis (Plaque) - Past Surgical History Past Surgical History: Yes: Appendectomy - Alcohol/Substance Use Hx Alcohol Use: No History of Substance Use: reports: None - Smoking History Smoking history: Never smoked Aproximately how many cigarettes per day: 0 - Social History ADL: Independent Occupation: Dentist History of Recent Travel: No Home Medications - Allergies Allergies/Adverse Reactions: Allergies Allergy/AdvReac Type Severity Reaction Status Date / Time Penicillins Allergy Verified 01/30/19 17:22 - Home Medications Home Medications: Ambulatory Orders Atenolol [Tenormin] 100 mg PO DAILY 06/18/12 Naproxen Sodium [Aleve] 440 mg PO ONCE 10/10/16 metFORMIN HCL [Metformin HCl] 500 mg PO BID 10/10/16 Atorvastatin Ca [Lipitor] 20 mg PO DAILY 01/30/19 Hctz 25Mg/Triamterene [Dyazide 25/37.5MG -] 1 cap PO DAILY 01/30/19 Ixekizumab [Taltz Autoinjector] 80 mg SQ ONCE 01/30/19 Ixekizumab [Taltz Autoinjector] 160 mg SQ ONCE 01/30/19 Losartan Potassium 50 mg PO HS 01/30/19 Sulfamethoxazole/Trimethoprim [Bactrim Ds Tablet] 1 each PO BID 10 Days #20 tablet 01/30/19 Review of Systems - Review of Systems Constitutional: reports: Chills, Fever, Weakness Eyes: reports: No Symptoms HENT: reports: No Symptoms Neck: reports: No Symptoms Cardiovascular: reports: No Symptoms Respiratory: reports: No Symptoms Gastrointestinal: reports: No Symptoms Genitourinary: reports: No Symptoms Musculoskeletal: reports: No Symptoms Integumentary: reports: No Symptoms Neurological: reports: No Symptoms Endocrine: reports: No Symptoms Hematology/Lymphatic: reports: No Symptoms Psychiatric: reports: No Symptoms Physical Exam Vital Signs: Vital Signs Temperature 99.9 F H 01/31/19 05:00 Pulse Rate 64 01/31/19 05:00 Respiratory Rate 19 01/31/19 05:00 Blood Pressure 120/43 L 01/31/19 05:00 O2 Sat by Pulse Oximetry (%) 100 01/31/19 07:28 Constitutional: Yes: Well Nourished, Calm, Mild Distress HENT: Yes: Atraumatic, Normocephalic Neck: Yes: Supple, Trachea Midline Cardiovascular: Yes: Regular Rate and Rhythm Respiratory: Yes: Regular, CTA Bilaterally Gastrointestinal: Yes: Normal Bowel Sounds, Soft Musculoskeletal: Yes: WNL Extremities: Yes: WNL Neurological: Yes: Alert, Oriented Psychiatric: Yes: Alert, Oriented Labs: CBC, BMP 01/31/19 07:25 01/31/19 07:25 Imaging - Results Chest X-ray: Report Reviewed, Image Reviewed Assessment/Plan Problem List - Problems (1) Sepsis Code(s): A41.9 - SEPSIS, UNSPECIFIED ORGANISM (2) UTI (urinary tract infection) Code(s): N39.0 - URINARY TRACT INFECTION, SITE NOT SPECIFIED Qualifiers: Urinary tract infection type: site unspecified Hematuria presence: without hematuria Qualified Code(s): N39.0 - Urinary tract infection, site not specified (3) Malaise Code(s): R53.81 - OTHER MALAISE (4) Severe obesity (BMI >= 40) Code(s): E66.01 - MORBID (SEVERE) OBESITY DUE TO EXCESS CALORIES fever snehal plan this patient coming in with fever probably because of uti and also suppressed immunity because of taltz i will continue meropenam await for all the results to be back also her creatinine is high monitor that rest as per the team
--- NOTE | 2019-01-31 14:11 | EKG ---
Test Reason : Blood Pressure : / mmHG Vent. Rate : 064 BPM Atrial Rate : 064 BPM P-R Int : 154 ms QRS Dur : 094 ms QT Int : 452 ms P-R-T Axes : -07 020 014 degrees QTc Int : 466 ms NORMAL SINUS RHYTHM NON-SPECIFIC INTRA-VENTRICULAR CONDUCTION DELAY NO PREVIOUS ECGS AVAILABLE Confirmed by RONALDO SALGUERO MD ([id number]) on 01/31/2019 2:11:32 PM Referred By: DR MORALES Confirmed By:RONALDO SALGUERO MD
--- NOTE | 2019-01-31 16:57 | CON.NEP ---
Consult Consult Specialty:: nephrology - History of Present Illness Chief Complaint: weakness fever History of Present Illness: This is a 58 year old woman with history of psoriasis, dm who presented with fever, urinary incontinence and weakness. No chest pain or cough. Her creatinine was elevated. So nephrology was called. Her PMD is a automation controls engineer and has been monitoring her. She started a new psoriasis medication recently, TALTZ, and she did well with the first injection but developed fever with the second. Her renal function is already better. She has no rash and no arthralgias. - History Source History Provided By: Patient, Medical Record Limitations to Obtaining History: No Limitations - Past Medical History Cardio/Vascular: Yes: HTN, Hyperlipdemia Endocrine: Yes: Diabetes Mellitus Dermatology: Yes: Psoriasis (Plaque) - Past Surgical History Past Surgical History: Yes: Appendectomy - Alcohol/Substance Use Hx Alcohol Use: No History of Substance Use: reports: None - Smoking History Smoking history: Never smoked Aproximately how many cigarettes per day: 0 - Social History ADL: Independent Occupation: Dentist History of Recent Travel: No Home Medications - Allergies Allergies/Adverse Reactions: Allergies Allergy/AdvReac Type Severity Reaction Status Date / Time Penicillins Allergy Verified 01/30/19 17:22 - Home Medications Home Medications: Ambulatory Orders Atenolol [Tenormin] 100 mg PO DAILY 06/18/12 Naproxen Sodium [Aleve] 440 mg PO ONCE 10/10/16 metFORMIN HCL [Metformin HCl] 500 mg PO BID 10/10/16 Atorvastatin Ca [Lipitor] 20 mg PO DAILY 01/30/19 Hctz 25Mg/Triamterene [Dyazide 25/37.5MG -] 1 cap PO DAILY 01/30/19 Ixekizumab [Taltz Autoinjector] 80 mg SQ ONCE 01/30/19 Ixekizumab [Taltz Autoinjector] 160 mg SQ ONCE 01/30/19 Losartan Potassium 50 mg PO HS 01/30/19 Sulfamethoxazole/Trimethoprim [Bactrim Ds Tablet] 1 each PO BID 10 Days #20 tablet 01/30/19 Review of Systems - Review of Systems Constitutional: reports: Fever, Malaise HENT: reports: No Symptoms Neck: reports: No Symptoms Cardiovascular: reports: No Symptoms Respiratory: reports: No Symptoms Gastrointestinal: reports: No Symptoms Genitourinary: reports: Incontinence Breasts: reports: No Symptoms Reported Musculoskeletal: reports: No Symptoms Integumentary: reports: No Symptoms Neurological: reports: No Symptoms Endocrine: reports: No Symptoms Hematology/Lymphatic: reports: No Symptoms Psychiatric: reports: No Symptoms Nephrology Consult - Height Height: 5 ft 1 in - Weight Weight: 252 lb 8 oz - BMI Body Mass Index (BMI): 47.7 - Lab Results CBC,BMP: CBC, BMP 01/31/19 07:25 01/31/19 07:25 Anion Gap: Anion Gap Anion Gap 11 MMOL/L (8-16) 01/31/19 07:25 - Imaging Chest X-ray: Report Reviewed (no acute changes, has crowded lung markings) - Physical Examination Vital Signs: Vital Signs Temperature 100.6 F H 01/31/19 14:00 Pulse Rate 75 01/31/19 14:00 Respiratory Rate 20 01/31/19 14:00 Blood Pressure 144/48 L 01/31/19 14:00 O2 Sat by Pulse Oximetry (%) 100 01/31/19 07:28 Constitutional: Yes: Well Nourished, No Distress, Calm Eyes: Yes: Conjunctiva Clear, EOM Intact HENT: Yes: Atraumatic, Normocephalic Neck: Yes: Supple, Trachea Midline Cardiovascular: Yes: Regular Rate and Rhythm, Murmur Respiratory: Yes: Regular, Rales (left base) Gastrointestinal: Yes: Normal Bowel Sounds, Soft Extremities: Yes: WNL Edema: No Neurological: Yes: Alert, Oriented Psychiatric: Yes: Alert, Oriented Assessment/Plan IMPRESSION MICHAEL on CKD- probably due to decreased intake and fluid losses from fever Has proteinuria which may be from her fever- overflow Psoriasis left base crackles- ?pneumonia murmur probably from fever PLAN urine sodium and creat urine protein and creat renal sono echo on antibiotics per ID keep hydrated if no improvement will need a biopsy since she may have an interstitial nephritis MV
[2019-01-31] MEDS: ATORVASTATIN CA 20 MG TABLET (FP) PO SCH (21:41)
[2019-02-01] MEDS: SODIUM CHLORIDE 1,000 ML IV SCH (01:15)
[2019-02-01 08:32] LABS: BASO % 0.5 % (0-2.0); EOS % 0.6 % (0-4.5); HEMATOCRIT 33.7 % (32.4-45.2); HEMOGLOBIN 11.3 GM/dl (10.7-15.3); LYMPH % 11.3 % (8-40); MCHC 33.5 g/dl (32.0-36.0); MEAN CELL VOLUME 89.5 fl (80-96); MEAN PLT VOLUME 8.5 fl (7.5-11.1); MONO % 5.8 % (3.8-10.2); NEUT % 81.8 % (42.8-82.8); PLATELET COUNT 301 K/MM3 (134-434); RBC 3.76 M/mm3 (3.60-5.2); RDW 13.5 % (11.6-15.6); WHITE BLOOD COUNT 13.6 K/mm3 (4.0-10.8)
[2019-02-01 08:46] LABS: ALBUMIN 3.1 g/dl (3.4-5.0); BILIRUBIN,TOTAL 0.6 mg/dl (0.2-1); CALCIUM 8.8 mg/dl (8.5-10); CREATININE 1.5 mg/dl (0.55-1.3); POTASSIUM 3.9 mmol/L (3.5-5.1); TOT PROT 6.6 g/dl (6.4-8.2)
[2019-02-01] MEDS ORDERED: DEXTROSE 5%-WATER 100 ML IVPB ONE ×2 (09:38→20:44)
[2019-02-01] MEDS ORDERED: MEROPENEM 1 GM VIAL (RESTRICTED TO ID) IVPB ONE ×2 (09:40→20:45)
[2019-02-01] MEDS: MEROPENEM 1 GM in DEXTROSE 5%-WATER 100 ML IVPB SCH ×2 (10:00→20:58)
--- NOTE | 2019-02-01 11:11 | PN ---
Progress Note, Physician History of Present Illness: spiked low grade fever last night currently afebrile feels better creatinine trending down - Current Medication List Current Medications: Active Medications Acetaminophen (Tylenol -) 650 mg PO Q6H PRN PRN Reason: PAIN LEVEL 6-10 Last Admin: 01/31/19 13:10 Dose: 650 mg Atorvastatin Calcium (Lipitor -) 20 mg PO HS [facility] Last Admin: 01/31/19 21:41 Dose: Not Given Meropenem 1 gm/ Dextrose 100 mls @ 0 mls/hr IVPB Q12H OSKAR Last Admin: 01/31/19 21:40 Dose: 100 mls/hr Sodium Chloride (Normal Saline -) 1,000 mls @ 60 mls/hr IV ASDIR OSKAR Last Admin: 02/01/19 01:15 Dose: 60 mls/hr Ondansetron HCl (Zofran Injection) 4 mg IVPUSH Q6H PRN PRN Reason: NAUSEA Last Admin: 01/31/19 07:02 Dose: 4 mg - Objective Vital Signs: Vital Signs Temperature 97.9 F 02/01/19 06:00 Pulse Rate 69 02/01/19 06:00 Respiratory Rate 18 02/01/19 06:00 Blood Pressure 147/56 L 02/01/19 06:00 O2 Sat by Pulse Oximetry (%) 100 02/01/19 06:00 Constitutional: Yes: No Distress, Calm Cardiovascular: Yes: S1, S2 Respiratory: Yes: Regular, CTA Bilaterally Musculoskeletal: Yes: WNL Extremities: Yes: WNL Neurological: Yes: Alert, Oriented Psychiatric: Yes: Alert, Oriented Labs: CBC, BMP 02/01/19 08:07 02/01/19 08:07 Assessment/Plan Problem List - Problems (1) Sepsis Code(s): A41.9 - SEPSIS, UNSPECIFIED ORGANISM (2) UTI (urinary tract infection) Code(s): N39.0 - URINARY TRACT INFECTION, SITE NOT SPECIFIED Qualifiers: Urinary tract infection type: site unspecified Hematuria presence: without hematuria Qualified Code(s): N39.0 - Urinary tract infection, site not specified (3) Malaise Code(s): R53.81 - OTHER MALAISE (4) Severe obesity (BMI >= 40) Code(s): E66.01 - MORBID (SEVERE) OBESITY DUE TO EXCESS CALORIES fever snehal plan continue abx await for identification of the organism monitor fevers and wbc rest as per the team
--- NOTE | 2019-02-01 12:40 | PN ---
Physical Exam: SUBJECTIVE: Patient seen and examined, pt reports feeling better, denies sHA, dizziness, cp, sob, palpitations, abdominal pain, N/V/D or urinary symptoms. OBJECTIVE: Vital Signs Period Temp Pulse Resp BP Sys/Muir Pulse Ox Last 24 Hr 97.9 F-1002.7 F 66-75 17-20 108-147/48-61 96-100 GENERAL: The patient is awake, alert, and fully oriented, in no acute distress. HEAD: Normal with no signs of trauma. EYES: PERRL, extraocular movements intact, sclera anicteric, conjunctiva clear. No ptosis. ENT: Ears normal, nares patent, oropharynx clear without exudates, moist mucous membranes. NECK: Trachea midline, full range of motion, supple. LUNGS: Breath sounds equal, clear to auscultation bilaterally, no wheezes, no crackles, no accessory muscle use. HEART: Regular rate and rhythm, S1, S2, +HM no rub or gallop. ABDOMEN: Soft, nontender, nondistended, normoactive bowel sounds, no guarding, no rebound, no hepatosplenomegaly, no masses. EXTREMITIES: 2+ pulses, warm, well-perfused, no edema. NEUROLOGICAL: Cranial nerves II through XII grossly intact. Normal speech, gait not observed. PSYCH: Normal mood, normal affect. SKIN: Warm, dry, normal turgor, no rashes or lesions noted Laboratory Results - last 24 hr 02/01/19 02/01/19 08:07 08:07 WBC 13.6 H RBC 3.76 Hgb 11.3 Hct 33.7 MCV 89.5 MCH 30.0 MCHC 33.5 RDW 13.5 Plt Count 301 MPV 8.5 Absolute Neuts (auto) 11.1 Neutrophils % 81.8 Lymphocytes % 11.3 Monocytes % 5.8 Eosinophils % 0.6 Basophils % 0.5 Sodium 139 Potassium 3.9 Chloride 99 Carbon Dioxide 27 Anion Gap 13 BUN 22.0 H Creatinine 1.5 H Est GFR (CKD-EPI)AfAm 43.43 Est GFR (CKD-EPI)NonAf 37.48 Random Glucose 200 H Calcium 8.8 Total Bilirubin 0.6 AST 30 ALT 43 Alkaline Phosphatase 224 H D Total Protein 6.6 Albumin 3.1 L Active Medications Generic Name Dose Route Start Last Admin Trade Name Freq PRN Reason Stop Dose Admin Acetaminophen 650 mg 01/31/19 01:30 01/31/19 13:10 Tylenol - PO 650 mg Q6H PRN Administration PAIN LEVEL 6-10 Atorvastatin Calcium 20 mg 01/31/19 22:00 01/31/19 21:41 Lipitor - PO Not Given HS OSKAR Meropenem 1 gm/ Dextrose 100 mls @ 0 mls/hr 01/30/19 21:45 01/31/19 21:40 IVPB 100 mls/hr Q12H OSKAR Administration As Directed Sodium Chloride 1,000 mls @ 60 mls/hr 01/31/19 01:30 02/01/19 01:15 Normal Saline - IV 60 mls/hr ASDIR OSKAR Administration Ondansetron HCl 4 mg 01/31/19 06:52 01/31/19 07:02 Zofran Injection IVPUSH 4 mg Q6H PRN Administration NAUSEA Cxr: No acute lung pathology Renal US: 8x6 mm left echogenic lesion, poss angiomyolipoma. Microbiology 01/30/19 17:30 Urine Culture - Preliminary Urine - Urine Clean Catch Lactose Fermenting Neg Bacilli 01/30/19 18:30 Blood Culture - Preliminary Blood - Peripheral Venous NO GROWTH OBTAINED AFTER 24 HOURS, INCUBATION TO CONTINUE FOR 4 DAYS. 01/30/19 18:45 Blood Culture - Preliminary Blood - Peripheral Venous NO GROWTH OBTAINED AFTER 24 HOURS, INCUBATION TO CONTINUE FOR 4 DAYS. 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 Admitted for Urosepsis secondary to UTI, * Urosepsis - max temp 100.8,still with low grade fever - Lactic acid 0.9 - wbc WBC 18>15>13.6 , likely due to inflammatory process on Taltz for plaque psoriasis vs infectious - ID following - will cont on Meropenum - BC preliminary no growth - Urine culture: Lactose Fermenting Neg Bacilli * MICHAEL - cre 2.5> 1.5 - Renal US: No obstruction - Renal following -will check urine sodium and creat and protein - gentle hydration - will hold off home dose Dyazide and Losartan - will f/u on Holter Scanning Technician * HTN- BP stable - will hold off home and monitor * HDL - on Statin * NIDDM - hold off home dose metformin - Lispro sliding scale - FS AC& HS *Severe obesity (BMI >= 40) - weight loss advised * Back strain- denied *FEN PO fluids as tolerated Replete lytes prn Low Na/ Diabetic diet *DVT ppx: Heparin sq/ SCDs Code Status: Full Code Visit type - Emergency Visit Emergency Visit: Yes ED Registration Date: 01/30/19 Care time: The patient presented to the Emergency Department on the above date and was hospitalized for further evaluation of their emergent condition. - New Patient This patient is new to me today: Yes Date on this admission: 02/01/19 - Critical Care Critical Care patient: No
--- NOTE | 2019-02-01 13:04 | PN ---
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
[2019-02-01] MEDS: ACETAMINOPHEN 325 MG TABLET (FP) PO PRN (15:29)
[2019-02-01] MEDS ORDERED: ACETAMINOPHEN 1000 MG/100 ML VIAL (NON FORMULARY) IVPB PRN (16:41)
[2019-02-01] MEDS: INSULIN SLIDING SCALE (NOVOLOG) 1 VIAL SQ SCH ×2 (18:54→21:56)
[2019-02-01] MEDS: HEPARIN NA (PORCINE) 5,000 UNITS/ML 1ML VIAL SQ SCH ×2 (18:54→21:55)
[2019-02-01] MEDS ORDERED: INSULIN (NOVOLOG) ASPART 100 UNITS/ML 10ML VIAL ONE (21:53)
[2019-02-01] MEDS: ATORVASTATIN CA 20 MG TABLET (FP) PO SCH (21:56)
[2019-02-02] MEDS: HEPARIN NA (PORCINE) 5,000 UNITS/ML 1ML VIAL SQ SCH ×4 (06:12→21:52)
[2019-02-02] MEDS: INSULIN SLIDING SCALE (NOVOLOG) 1 VIAL SQ SCH ×6 (06:12→22:38)
[2019-02-02] MEDS: SODIUM CHLORIDE 1,000 ML IV SCH (06:12)
[2019-02-02] MEDS ORDERED: MEROPENEM 1 GM VIAL (RESTRICTED TO ID) IVPB ONE ×2 (06:24→21:26)
[2019-02-02] MEDS ORDERED: DEXTROSE 5%-WATER 100 ML IVPB ONE ×2 (06:24→21:26)
[2019-02-02 08:59] LABS: BASO % 1.1 % (0-2.0); EOS % 2.1 % (0-4.5); HEMATOCRIT 30.2 % (32.4-45.2); HEMOGLOBIN 10.1 GM/dl (10.7-15.3); LYMPH % 17.4 % (8-40); MCH 30.2 pg (25.7-33.7); MCHC 33.4 g/dl (32.0-36.0); MEAN CELL VOLUME 90.3 fl (80-96); MEAN PLT VOLUME 9.3 fl (7.5-11.1); MONO % 10.6 % (3.8-10.2); NEUT % 68.8 % (42.8-82.8); PLATELET COUNT 258 K/MM3 (134-434); RBC 3.35 M/mm3 (3.60-5.2); RDW 13.3 % (11.6-15.6); WHITE BLOOD COUNT 9.1 K/mm3 (4.0-10.8)
[2019-02-02 09:21] LABS: CALCIUM 8.5 mg/dl (8.5-10); CREATININE 1.4 mg/dl (0.55-1.3)
[2019-02-02] MEDS: MEROPENEM 1 GM in DEXTROSE 5%-WATER 100 ML IVPB SCH ×2 (09:34→21:32)
--- NOTE | 2019-02-02 10:19 | PN ---
Physical Exam: SUBJECTIVE: Patient seen and examined, pt reports having soft stool, mustardy consistency. denies loose watery diarrhea temp 98.9 creat improving OBJECTIVE: Vital Signs Period Temp Pulse Resp BP Sys/Muir Pulse Ox Last 24 Hr 98.9 F-101 F 70-81 16-18 103-140/53-65 94-99 GENERAL: The patient is awake, alert, and fully oriented, in no acute distress. HEAD: Normal with no signs of trauma. EYES: PERRL, extraocular movements intact, sclera anicteric, conjunctiva clear. No ptosis. ENT: Ears normal, nares patent, oropharynx clear without exudates, moist mucous membranes. NECK: Trachea midline, full range of motion, supple. LUNGS: Breath sounds equal, clear to auscultation bilaterally, no wheezes, no crackles, no accessory muscle use. HEART: Regular rate and rhythm, S1, S2 without murmur, rub or gallop. ABDOMEN: Soft, nontender, nondistended, normoactive bowel sounds, no guarding, no rebound, no hepatosplenomegaly, no masses. EXTREMITIES: 2+ pulses, warm, well-perfused, no edema. NEUROLOGICAL: Cranial nerves II through XII grossly intact. Normal speech, gait not observed. PSYCH: Normal mood, normal affect. SKIN: Warm, dry, normal turgor, no rashes or lesions noted Laboratory Results - last 24 hr 02/01/19 02/02/19 02/02/19 21:50 05:30 05:30 WBC 9.1 RBC 3.35 L Hgb 10.1 L Hct 30.2 L MCV 90.3 MCH 30.2 MCHC 33.4 RDW 13.3 Plt Count 258 MPV 9.3 Absolute Neuts (auto) 6.2 Neutrophils % 68.8 Lymphocytes % 17.4 Monocytes % 10.6 H Eosinophils % 2.1 Basophils % 1.1 Sodium 139 Potassium 4.0 Chloride 100 Carbon Dioxide 25 Anion Gap 14 BUN 25.0 H Creatinine 1.4 H Est GFR (CKD-EPI)AfAm 47.21 Est GFR (CKD-EPI)NonAf 40.74 POC Glucometer 238 Random Glucose 177 H Calcium 8.5 Urine Color Urine Appearance Urine pH Urine Protein Urine Glucose (UA) Urine Ketones Urine Blood Urine Nitrite Urine Bilirubin Urine Urobilinogen Ur Leukocyte Esterase Ur Random Creatinine U Random Total Protein Ur Random Sodium 02/02/19 02/02/19 02/02/19 06:00 06:00 06:00 WBC RBC Hgb Hct MCV MCH MCHC RDW Plt Count MPV Absolute Neuts (auto) Neutrophils % Lymphocytes % Monocytes % Eosinophils % Basophils % Sodium Potassium Chloride Carbon Dioxide Anion Gap BUN Creatinine Est GFR (CKD-EPI)AfAm Est GFR (CKD-EPI)NonAf POC Glucometer Random Glucose Calcium Urine Color Yellow Urine Appearance Clear Urine pH 5.5 Urine Protein Trace Urine Glucose (UA) Negative Urine Ketones Negative Urine Blood Trace-intact Urine Nitrite Negative Urine Bilirubin Negative Urine Urobilinogen 0.2 Ur Leukocyte Esterase Negative Ur Random Creatinine 141.5 U Random Total Protein 42.1 H Ur Random Sodium 86 02/02/19 06:03 WBC RBC Hgb Hct MCV MCH MCHC RDW Plt Count MPV Absolute Neuts (auto) Neutrophils % Lymphocytes % Monocytes % Eosinophils % Basophils % Sodium Potassium Chloride Carbon Dioxide Anion Gap BUN Creatinine Est GFR (CKD-EPI)AfAm Est GFR (CKD-EPI)NonAf POC Glucometer 178 Random Glucose Calcium Urine Color Urine Appearance Urine pH Urine Protein Urine Glucose (UA) Urine Ketones Urine Blood Urine Nitrite Urine Bilirubin Urine Urobilinogen Ur Leukocyte Esterase Ur Random Creatinine U Random Total Protein Ur Random Sodium Active Medications Generic Name Dose Route Start Last Admin Trade Name Estebanq PRN Reason Stop Dose Admin Acetaminophen 650 mg 01/31/19 01:30 02/01/19 15:29 Tylenol - PO 650 mg Q6H PRN Administration PAIN LEVEL 6-10 Acetaminophen 1,000 mg 02/01/19 16:41 02/02/19 06:12 Ofirmev Injection - IVPB 1,000 mg ONCE PRN Administration FEVER Atorvastatin Calcium 20 mg 01/31/19 22:00 02/01/19 21:56 Lipitor - PO Not Given HS OSKAR Heparin Sodium (Porcine) 5,000 unit 02/01/19 14:00 02/02/19 06:12 Heparin - SQ Not Given TID OSKAR Meropenem 1 gm/ Dextrose 100 mls @ 0 mls/hr 01/30/19 21:45 02/02/19 09:34 IVPB 100 mls/hr Q12H OSKAR Administration As Directed Sodium Chloride 1,000 mls @ 60 mls/hr 01/31/19 01:30 02/02/19 06:12 Normal Saline - IV Not Given ASDIR [facility] Insulin Aspart 1 vial 02/01/19 16:30 02/02/19 06:12 Novolog Vial Sliding Scale - SQ Not Given ACHS [facility] Protocol Ondansetron HCl 4 mg 01/31/19 06:52 01/31/19 07:02 Zofran Injection IVPUSH 4 mg Q6H PRN Administration NAUSEA ASSESSMENT/PLAN: 58 y/o woman with a 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 Admitted for Urosepsis secondary to UTI, * Urosepsis - wbc WBC 18>15>13.6 , likely due to inflammatory process on Taltz for plaque psoriasis vs infectious - ID following - will cont on Meropenum - BC preliminary no growth - Urine culture:Klebsiella PNA * MICHAEL-improving - Renal US: No obstruction - Renal following -urine sodium 86 and creat and protein 42.1 - gentle hydration - will hold off home dose Dyazide and Losartan - will f/u on Chief Ii Dispatcher * HTN- BP stable - will hold off home and monitor * HDL - on Statin * NIDDM - hold off home dose metformin - Lispro sliding scale - FS AC& HS *Severe obesity (BMI >= 40) - weight loss advised * Back strain- denied *FEN PO fluids as tolerated Replete lytes prn Low Na/ Diabetic diet *DVT ppx: Heparin sq/ SCDs Code Status: Full Code Visit type - Emergency Visit Emergency Visit: Yes ED Registration Date: 01/30/19 Care time: The patient presented to the Emergency Department on the above date and was hospitalized for further evaluation of their emergent condition. - New Patient This patient is new to me today: Yes Date on this admission: 02/02/19 - Critical Care Critical Care patient: No
[2019-02-02 10:26] LABS: EPITHELIAL CELLS FEW /hpf
--- NOTE | 2019-02-02 12:36 | PN ---
Progress Note, Physician History of Present Illness: stable no - Current Medication List Current Medications: Active Medications Acetaminophen (Tylenol -) 650 mg PO Q6H PRN PRN Reason: PAIN LEVEL 6-10 Last Admin: 02/01/19 15:29 Dose: 650 mg Acetaminophen (Ofirmev Injection -) 1,000 mg IVPB ONCE PRN PRN Reason: FEVER Last Admin: 02/02/19 06:12 Dose: 1,000 mg Atorvastatin Calcium (Lipitor -) 20 mg PO HS [facility] Last Admin: 02/01/19 21:56 Dose: Not Given Heparin Sodium (Porcine) (Heparin -) 5,000 unit SQ TID [facility] Last Admin: 02/02/19 06:12 Dose: Not Given Meropenem 1 gm/ Dextrose 100 mls @ 0 mls/hr IVPB Q12H [facility] Last Admin: 02/02/19 09:34 Dose: 100 mls/hr Sodium Chloride (Normal Saline -) 1,000 mls @ 60 mls/hr IV ASDIR [facility] Last Admin: 02/02/19 06:12 Dose: Not Given Insulin Aspart (Novolog Vial Sliding Scale -) 1 vial SQ [facility]; Protocol Last Admin: 02/02/19 06:12 Dose: Not Given Ondansetron HCl (Zofran Injection) 4 mg IVPUSH Q6H PRN PRN Reason: NAUSEA Last Admin: 01/31/19 07:02 Dose: 4 mg - Objective Vital Signs: Vital Signs Temperature 98.9 F 02/02/19 05:00 Pulse Rate 81 02/02/19 05:00 Respiratory Rate 18 02/02/19 05:00 Blood Pressure 132/63 02/02/19 05:00 O2 Sat by Pulse Oximetry (%) 99 02/02/19 05:00 Constitutional: Yes: No Distress, Calm Cardiovascular: Yes: Regular Rate and Rhythm Respiratory: Yes: Regular, CTA Bilaterally Musculoskeletal: Yes: WNL Extremities: Yes: WNL Neurological: Yes: Alert, Oriented Psychiatric: Yes: Alert, Oriented Labs: CBC, BMP 02/02/19 05:30 02/02/19 05:30 Assessment/Plan Problem List - Problems (1) Sepsis Code(s): A41.9 - SEPSIS, UNSPECIFIED ORGANISM (2) UTI (urinary tract infection) Code(s): N39.0 - URINARY TRACT INFECTION, SITE NOT SPECIFIED Qualifiers: Urinary tract infection type: site unspecified Hematuria presence: without hematuria Qualified Code(s): N39.0 - Urinary tract infection, site not specified (3) Malaise Code(s): R53.81 - OTHER MALAISE (4) Severe obesity (BMI >= 40) Code(s): E66.01 - MORBID (SEVERE) OBESITY DUE TO EXCESS CALORIES fever snehal plan continue abx if stable will switch to oral tomorrow
[2019-02-02] MEDS: ATORVASTATIN CA 20 MG TABLET (FP) PO SCH ×2 (21:33→21:54)
[2019-02-02] MEDS: ACETAMINOPHEN 325 MG TABLET (FP) PO PRN (21:59)
[2019-02-02] MEDS ORDERED: REFRIGERATED ANITBIOTICS ONE (22:48)
[2019-02-03] MEDS: SODIUM CHLORIDE 1,000 ML IV SCH (01:15)
[2019-02-03] MEDS: HEPARIN NA (PORCINE) 5,000 UNITS/ML 1ML VIAL SQ SCH ×3 (06:32→21:42)
[2019-02-03] MEDS: INSULIN SLIDING SCALE (NOVOLOG) 1 VIAL SQ SCH ×3 (06:37→22:22)
[2019-02-03 08:08] LABS: BASO % 0.7 % (0-2.0); HEMATOCRIT 30.9 % (32.4-45.2); HEMOGLOBIN 10.6 GM/dl (10.7-15.3); LYMPH % 19.2 % (8-40); MCH 30.8 pg (25.7-33.7); MCHC 34.3 g/dl (32.0-36.0); MEAN CELL VOLUME 89.9 fl (80-96); MEAN PLT VOLUME 8.3 fl (7.5-11.1); MONO % 8.5 % (3.8-10.2); NEUT % 68.6 % (42.8-82.8); PLATELET COUNT 254 K/MM3 (134-434); RBC 3.44 M/mm3 (3.60-5.2); RDW 13.6 % (11.6-15.6)
[2019-02-03 08:14] LABS: ALBUMIN 2.8 g/dl (3.4-5.0); BILIRUBIN,TOTAL 0.2 mg/dl (0.2-1); CALCIUM 8.7 mg/dl (8.5-10); CREATININE 1.1 mg/dl (0.55-1.3); MAGNESIUM 1.9 mg/dL (1.8-2.4); POTASSIUM 4.2 mmol/L (3.5-5.1); TOT PROT 5.8 g/dl (6.4-8.2)
[2019-02-03] MEDS ORDERED: DEXTROSE 5%-WATER 100 ML IVPB ONE ×2 (09:21→21:20)
[2019-02-03] MEDS ORDERED: MEROPENEM 1 GM VIAL (RESTRICTED TO ID) IVPB ONE ×2 (09:21→21:21)
[2019-02-03] MEDS: MEROPENEM 1 GM in DEXTROSE 5%-WATER 100 ML IVPB SCH ×2 (09:35→21:41)
[2019-02-03] MEDS ORDERED: LACTOBACILLUS ACIDOPHILUS 1 TABLET PO SCH (10:00)
--- NOTE | 2019-02-03 11:24 | PN ---
Progress Note, Physician History of Present Illness: Pt seen and examined at bedside. She is awake and alert. She denies shortness of breath. - Current Medication List Current Medications: Active Medications Acetaminophen (Tylenol -) 650 mg PO Q6H PRN PRN Reason: PAIN LEVEL 6-10 Last Admin: 02/02/19 21:59 Dose: 650 mg Acetaminophen (Ofirmev Injection -) 1,000 mg IVPB ONCE PRN PRN Reason: FEVER Last Admin: 02/02/19 06:12 Dose: 1,000 mg Atorvastatin Calcium (Lipitor -) 20 mg PO HS OSKAR Last Admin: 02/02/19 21:54 Dose: Not Given Heparin Sodium (Porcine) (Heparin -) 5,000 unit SQ TID [facility] Last Admin: 02/03/19 06:32 Dose: Not Given Meropenem 1 gm/ Dextrose 100 mls @ 0 mls/hr IVPB Q12H [facility] Last Admin: 02/03/19 09:35 Dose: 100 mls/hr Sodium Chloride (Normal Saline -) 1,000 mls @ 60 mls/hr IV ASDIR [facility] Last Admin: 02/03/19 01:15 Dose: Not Given Insulin Aspart (Novolog Vial Sliding Scale -) 1 vial SQ ACHS [facility]; Protocol Last Admin: 02/03/19 06:37 Dose: Not Given Lactobacillus Acidophilus (Bacid -) 1 tab PO DAILY [facility] Stop: 02/08/19 23:59 Last Admin: 02/03/19 09:35 Dose: 1 tab Ondansetron HCl (Zofran Injection) 4 mg IVPUSH Q6H PRN PRN Reason: NAUSEA Last Admin: 01/31/19 07:02 Dose: 4 mg - Objective Vital Signs: Vital Signs Temperature 98.9 F 02/03/19 10:05 Pulse Rate 81 02/03/19 10:05 Respiratory Rate 19 02/03/19 10:05 Blood Pressure 154/78 02/03/19 10:05 O2 Sat by Pulse Oximetry (%) 96 02/03/19 10:05 Constitutional: Yes: Calm Eyes: Yes: Conjunctiva Clear HENT: Yes: Atraumatic Cardiovascular: Yes: S1, S2 Respiratory: Yes: CTA Bilaterally Gastrointestinal: Yes: Soft, Abdomen, Obese Genitourinary: Yes: WNL Musculoskeletal: Yes: WNL Edema: No Neurological: Yes: Oriented Psychiatric: Yes: Oriented Labs: CBC, BMP 02/03/19 07:20 02/03/19 07:20 Assessment/Plan Current Medications Generic Name Dose Route Start Last Admin Trade Name Gerard PRN Reason Stop Dose Admin Acetaminophen 650 mg 01/31/19 01:30 02/02/19 21:59 Tylenol - PO 650 mg Q6H PRN Administration PAIN LEVEL 6-10 Acetaminophen 1,000 mg 02/01/19 16:41 02/02/19 06:12 Ofirmev Injection - IVPB 1,000 mg ONCE PRN Administration FEVER Atorvastatin Calcium 20 mg 01/31/19 22:00 02/02/19 21:54 Lipitor - PO Not Given HS OSKAR Heparin Sodium (Porcine) 5,000 unit 02/01/19 14:00 02/03/19 06:32 Heparin - SQ Not Given TID OSKAR Meropenem 1 gm/ Dextrose 100 mls @ 0 mls/hr 01/30/19 21:45 02/03/19 09:35 IVPB 100 mls/hr Q12H OSKAR Administration As Directed Sodium Chloride 1,000 mls @ 60 mls/hr 01/31/19 01:30 02/03/19 01:15 Normal Saline - IV Not Given ASDIR OSKAR Insulin Aspart 1 vial 02/01/19 16:30 02/03/19 06:37 Novolog Vial Sliding Scale - SQ Not Given ACHS OSKAR Protocol Lactobacillus Acidophilus 1 tab 02/03/19 10:00 02/03/19 09:35 Bacid - PO 02/08/19 23:59 1 tab DAILY OSKAR Administration Ondansetron HCl 4 mg 01/31/19 06:52 01/31/19 07:02 Zofran Injection IVPUSH 4 mg Q6H PRN Administration NAUSEA Impression 1. UTI 2. sepsis 3. DM 4. obesity 5. psoriasis on TALTZ 6. 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
--- NOTE | 2019-02-03 13:55 | PN ---
Progress Note, Physician History of Present Illness: stable no new issues - Current Medication List Current Medications: Active Medications Acetaminophen (Tylenol -) 650 mg PO Q6H PRN PRN Reason: PAIN LEVEL 6-10 Last Admin: 02/02/19 21:59 Dose: 650 mg Acetaminophen (Ofirmev Injection -) 1,000 mg IVPB ONCE PRN PRN Reason: FEVER Last Admin: 02/02/19 06:12 Dose: 1,000 mg Atorvastatin Calcium (Lipitor -) 20 mg PO HS [facility] Last Admin: 02/02/19 21:54 Dose: Not Given Heparin Sodium (Porcine) (Heparin -) 5,000 unit SQ TID [facility] Last Admin: 02/03/19 06:32 Dose: Not Given Meropenem 1 gm/ Dextrose 100 mls @ 0 mls/hr IVPB Q12H [facility] Last Admin: 02/03/19 09:35 Dose: 100 mls/hr Sodium Chloride (Normal Saline -) 1,000 mls @ 60 mls/hr IV ASDIR [facility] Last Admin: 02/03/19 01:15 Dose: Not Given Insulin Aspart (Novolog Vial Sliding Scale -) 1 vial SQ ACHS [facility]; Protocol Last Admin: 02/03/19 06:37 Dose: Not Given Lactobacillus Acidophilus (Bacid -) 1 tab PO DAILY [facility] Stop: 02/08/19 23:59 Last Admin: 02/03/19 09:35 Dose: 1 tab Ondansetron HCl (Zofran Injection) 4 mg IVPUSH Q6H PRN PRN Reason: NAUSEA Last Admin: 01/31/19 07:02 Dose: 4 mg - Objective Vital Signs: Vital Signs Temperature 98.9 F 02/03/19 10:05 Pulse Rate 81 02/03/19 10:05 Respiratory Rate 19 02/03/19 10:05 Blood Pressure 154/78 02/03/19 10:05 O2 Sat by Pulse Oximetry (%) 96 02/03/19 10:05 Constitutional: Yes: No Distress, Calm Cardiovascular: Yes: Regular Rate and Rhythm Respiratory: Yes: Regular, CTA Bilaterally Gastrointestinal: Yes: Normal Bowel Sounds, Soft Musculoskeletal: Yes: WNL Extremities: Yes: WNL Neurological: Yes: Alert, Oriented Psychiatric: Yes: Alert, Oriented Labs: CBC, BMP 02/03/19 07:20 02/03/19 07:20 Assessment/Plan Problem List - Problems (1) Sepsis Code(s): A41.9 - SEPSIS, UNSPECIFIED ORGANISM (2) UTI (urinary tract infection) Code(s): N39.0 - URINARY TRACT INFECTION, SITE NOT SPECIFIED Qualifiers: Urinary tract infection type: site unspecified Hematuria presence: without hematuria Qualified Code(s): N39.0 - Urinary tract infection, site not specified (3) Malaise Code(s): R53.81 - OTHER MALAISE (4) Severe obesity (BMI >= 40) Code(s): E66.01 - MORBID (SEVERE) OBESITY DUE TO EXCESS CALORIES fever snehal plan continue abx rest as per the team
--- NOTE | 2019-02-03 14:35 | ECHO ---
Name: SAMAN LEE Exam:Adult Echocardiogram Study Date: 02/03/2019 12:37 PM Age: 58 yrs Height: 60 in MMode/2D Measurements & Calculations IVSd: 1.2 cm Ao root diam: 2.6 cm LVIDd: 3.6 cm LA dimension: 3.5 cm LVIDs: 2.4 cm LVPWd: 1.1 cm LVPWs: 1.5 cm EDV(Teich): 55.5 ml ESV(Teich): 20.0 ml LVOT diam: 1.9 cm Doppler Measurements & Calculations MV E max giovanni: 67.2 cm/sec MV dec slope: 317.0 cm/sec2 MV A max giovanni: 90.0 cm/sec MV E/A: 0.75 Ao V2 max: 173.4 cm/sec LV V1 max P.3 mmHg Ao max P.0 mmHg LV V1 max: 103.2 cm/sec МАРИНА(V,D): 1.6 cm2 PA V2 max: 146.6 cm/sec PA max P.6 mmHg Procedure A complete two-dimensional transthoracic echocardiogram was performed (2D, M-mode, Doppler and color flow Doppler). Technically limited study. Left Ventricle The left ventricle is normal in size. There is mild concentric left ventricular hypertrophy. Left aram tricular systolic function is normal. Ejection Fraction = 60-65%. No regional wall motion abnormalities noted. Right Ventricle The right ventricle is normal size. The right ventricular systolic function is normal. Atria The left atrial size is normal. Right atrial size is normal. Mitral Valve There is mild mitral annular calcification. There is mild mitral regurgitation. Tricuspid Valve The tricuspid valve is normal in structure and function. No tricuspid regurgitation. Aortic Valve There is mild aortic sclerosis.;. No aortic regurgitation is present. Pulmonic Valve The pulmonic valve is not well visualized. Great Vessels The aortic root is normal size. Pericardium/Pleura There is no pericardial effusion. Interpretation Summary Technically limited study The left ventricle is normal in size. There is mild concentric left ventricular hypertrophy. Left ventricular systolic function is normal. No regional wall motion abnormalities noted. Ejection Fraction = 60-65%. The right ventricular systolic function is normal. The left atrial size is normal. Right atrial size is normal. There is mild mitral annular calcification. There is mild mitral regurgitation. There is mild aortic sclerosis. There is no pericardial effusion. Patrick Wallace MD 02/03/2019 02:34 PM
--- NOTE | 2019-02-03 15:23 | PN ---
Physical Exam: SUBJECTIVE: Patient seen and examined oob to chair. OBJECTIVE: Vital Signs Period Temp Pulse Resp BP Sys/Muir Pulse Ox Last 24 Hr 97.6 F-99.1 F 71-90 17-19 139-171/72-78 95-98 GENERAL: The patient is awake, alert, and fully oriented, in no acute distress. LUNGS: Breath sounds equal, clear to auscultation bilaterally, no wheezes, no crackles, no accessory muscle use. HEART: Regular rate and rhythm, S1, S2 ABDOMEN: Soft, nontender, nondistended EXTREMITIES: 2+ pulses, warm, well-perfused, no edema. NEUROLOGICAL: Cranial nerves II through XII grossly intact. Normal speech, steady gait Laboratory Results - last 24 hr 02/02/19 02/02/19 02/03/19 16:56 22:02 06:35 WBC RBC Hgb Hct MCV MCH MCHC RDW Plt Count MPV Absolute Neuts (auto) Neutrophils % Lymphocytes % Monocytes % Eosinophils % Basophils % Sodium Potassium Chloride Carbon Dioxide Anion Gap BUN Creatinine Est GFR (CKD-EPI)AfAm Est GFR (CKD-EPI)NonAf POC Glucometer 221 170 146 Random Glucose Calcium Magnesium Total Bilirubin AST ALT Alkaline Phosphatase Total Protein Albumin 02/03/19 02/03/19 02/03/19 07:20 07:20 13:25 WBC 8.0 RBC 3.44 L Hgb 10.6 L Hct 30.9 L MCV 89.9 MCH 30.8 MCHC 34.3 RDW 13.6 Plt Count 254 MPV 8.3 Absolute Neuts (auto) 5.5 Neutrophils % 68.6 Lymphocytes % 19.2 Monocytes % 8.5 Eosinophils % 3.0 Basophils % 0.7 Sodium 139 Potassium 4.2 Chloride 102 Carbon Dioxide 26 Anion Gap 11 BUN 22.0 H Creatinine 1.1 Est GFR (CKD-EPI)AfAm 63.20 Est GFR (CKD-EPI)NonAf 54.53 POC Glucometer 177 Random Glucose 176 H Calcium 8.7 Magnesium 1.9 Total Bilirubin 0.2 AST 27 ALT 58 Alkaline Phosphatase 161 H D Total Protein 5.8 L Albumin 2.8 L Active Medications Generic Name Dose Route Start Last Admin Trade Name Freq PRN Reason Stop Dose Admin Acetaminophen 650 mg 01/31/19 01:30 02/02/19 21:59 Tylenol - PO 650 mg Q6H PRN Administration PAIN LEVEL 6-10 Acetaminophen 1,000 mg 02/01/19 16:41 02/02/19 06:12 Ofirmev Injection - IVPB 1,000 mg ONCE PRN Administration FEVER Atorvastatin Calcium 20 mg 01/31/19 22:00 02/02/19 21:54 Lipitor - PO Not Given HS [facility] Heparin Sodium (Porcine) 5,000 unit 02/01/19 14:00 02/03/19 14:17 Heparin - SQ Not Given TID [facility] Meropenem 1 gm/ Dextrose 100 mls @ 0 mls/hr 01/30/19 21:45 02/03/19 09:35 IVPB 100 mls/hr Q12H [facility] Administration As Directed Sodium Chloride 1,000 mls @ 60 mls/hr 01/31/19 01:30 02/03/19 01:15 Normal Saline - IV Not Given ASDIR [facility] Insulin Aspart 1 vial 02/01/19 16:30 02/03/19 06:37 Novolog Vial Sliding Scale - SQ Not Given ACHS [facility] Protocol Lactobacillus Acidophilus 1 tab 02/03/19 10:00 02/03/19 09:35 Bacid - PO 02/08/19 23:59 1 tab DAILY [facility] Administration Ondansetron HCl 4 mg 01/31/19 06:52 01/31/19 07:02 Zofran Injection IVPUSH 4 mg Q6H PRN Administration NAUSEA ASSESSMENT/PLAN 58 year-old female with a PMH significant for HTN, HLD, Type II NIDDM, and plaque psoriasis. Admitted for sepsis secondary to UTI, MICHAEL. Klebsiella UTI --WBC 18.2, T 100.8, pyuria present on admission --defervesced 02/01, leukocytosis is resolved --continue meropenem (day #4); last dose tomorrow, discharge to home, abx complete --ID following MICHAEL, resolved --Cr 2.5 on admission, 1.1 today Plaque psoriasis --started Taltz on 01/07 Hypertension --restart HCTA/triamterene, losartan, atenolol Hyperlipidemia --continue statin Type II NIDDM --Novolog sliding scale coverage FEN Fluids: PO intake adequate Electrolytes: replete as indicated Nutrition: low sodium, diabetic DVT prophylaxis: subq heparin Dispo: continues to require inpatient care. Full code. Visit type - Emergency Visit Emergency Visit: Yes ED Registration Date: 01/30/19 Care time: The patient presented to the Emergency Department on the above date and was hospitalized for further evaluation of their emergent condition. - New Patient This patient is new to me today: Yes Date on this admission: 02/03/19 - Critical Care Critical Care patient: No
[2019-02-03 15:27] VITALS: BMI 47.6
[2019-02-03] MEDS ORDERED: PT OWN MED DRAWER 7, Y5N ONE (16:00)
[2019-02-03] MEDS: ATENOLOL 50 MG TABLET (FP) PO SCH (16:11)
[2019-02-03] MEDS: TRIAMTERENE AND HCTZ - 37.5 MG/25 MG CAPSULE PO SCH (21:42)
[2019-02-03] MEDS ORDERED: LOSARTAN POTASSIUM 50 MG TABLET (FP) PO SCH (22:00)
[2019-02-03] MEDS: ATORVASTATIN CA 20 MG TABLET (FP) PO SCH (22:50)
[2019-02-04] MEDS: HEPARIN NA (PORCINE) 5,000 UNITS/ML 1ML VIAL SQ SCH (05:51)
[2019-02-04] MEDS: INSULIN SLIDING SCALE (NOVOLOG) 1 VIAL SQ SCH ×3 (06:23→10:40)
[2019-02-04] MEDS ORDERED: DEXTROSE 5%-WATER 100 ML IVPB ONE (08:47)
[2019-02-04] MEDS ORDERED: MEROPENEM 1 GM VIAL (RESTRICTED TO ID) IVPB ONE (08:48)
[2019-02-04] MEDS: MEROPENEM 1 GM in DEXTROSE 5%-WATER 100 ML IVPB SCH (08:55)
[2019-02-04] MEDS ORDERED: PT OWN MED DRAWER 7, Y5N ONE (09:05)
[2019-02-04 09:20] VITALS: BP 142/59; PULSE 60; TEMP 98.9
[2019-02-04] MEDS: TRIAMTERENE AND HCTZ - 37.5 MG/25 MG CAPSULE PO SCH (09:20)
[2019-02-04] MEDS: ATENOLOL 50 MG TABLET (FP) PO SCH (09:20)
--- NOTE | 2019-02-04 09:33 | DS ---
Physical Exam: SUBJECTIVE: Patient seen and examined OBJECTIVE: Vital Signs Period Temp Pulse Resp BP Sys/Muir Pulse Ox Last 24 Hr 98.9 F-99.2 F 60-90 17-19 127-171/56-78 96-98 PHYSICAL EXAM GENERAL: The patient is awake, alert, and fully oriented, in no acute distress. HEAD: Normal with no signs of trauma. EYES: PERRL, extraocular movements intact, sclera anicteric, conjunctiva clear. ENT: Ears normal, nares patent, oropharynx clear without exudates, moist mucous membranes. NECK: Trachea midline, full range of motion, supple. LUNGS: Breath sounds equal, clear to auscultation bilaterally, no wheezes, no crackles, no accessory muscle use. HEART: Regular rate and rhythm, S1, S2 without murmur, rub or gallop. ABDOMEN: Soft, nontender, nondistended, normoactive bowel sounds, no guarding, no rebound, no hepatosplenomegaly, no masses. EXTREMITIES: 2+ pulses, warm, well-perfused, no edema. NEUROLOGICAL: Cranial nerves II through XII grossly intact. Normal speech, gait not observed. PSYCH: Normal mood, normal affect. SKIN: Warm, dry, normal turgor, no rashes or lesions noted. LABS Laboratory Results - last 24 hr 02/03/19 02/03/19 02/04/19 13:25 22:17 06:20 POC Glucometer 177 170 159 HOSPITAL COURSE: Date of Admission:01/30/19 Date of Discharge: 02/04/19 58 year-old female with a PMH significant for HTN, HLD, Type II NIDDM, and plaque psoriasis. Admitted for sepsis secondary to UTI, MICHAEL. Klebsiella UTI --WBC 18.2, T 100.8, pyuria present on admission --defervesced 02/01, leukocytosis is resolved --completed 5-day course of meropenem MICHAEL, resolved --Cr 2.5 on admission, now 1.1 Plaque psoriasis --started Taltz on 01/07 Hypertension --restarted HCTA/triamterene, losartan, atenolol Hyperlipidemia --continued statin Type II NIDDM --Novolog sliding scale coverage Minutes to complete discharge: 35 Discharge Summary Problems reviewed: Yes Reason For Visit: URINARY TRACT INFECTION Current Active Problems Fever (Acute) Malaise (Acute) Sepsis (Acute) Severe obesity (BMI >= 40) (Acute) UTI (urinary tract infection) (Acute) Condition: Improved - Instructions Diet, Activity, Other Instructions: You have completed a course of antibiotics for a urinary tract infection. Return to the emergency department for any new or worsening symptoms. Referrals: Sergio Peña MD [Primary Care Provider] - Disposition: HOME - Home Medications Comprehensive Discharge Medication List: Ambulatory Orders Atenolol [Tenormin] 100 mg PO DAILY 06/18/12 Naproxen Sodium [Aleve] 440 mg PO ONCE 10/10/16 metFORMIN HCL [Metformin HCl] 500 mg PO BID 10/10/16 Atorvastatin Ca [Lipitor] 20 mg PO DAILY 01/30/19 Hctz 25Mg/Triamterene [Dyazide 25/37.5MG -] 1 cap PO DAILY 01/30/19 Ixekizumab [Taltz Autoinjector] 80 mg SQ ONCE 01/30/19 Ixekizumab [Taltz Autoinjector] 160 mg SQ ONCE 01/30/19 Losartan Potassium 50 mg PO HS 01/30/19 Sulfamethoxazole/Trimethoprim [Bactrim Ds Tablet] 1 each PO BID 10 Days #20 tablet 01/30/19 This patient is new to me today: No Emergency Visit: Yes ED Registration Date: 01/30/19 Care time: The patient presented to the Emergency Department on the above date and was hospitalized for further evaluation of their emergent condition. Critical Care patient: No - Discharge Referral Referred to [facility] Med P.C.: No
== END 2019-02-04 11:23 | disposition home or self-care (01) | DRG 690 ==
LOC: FER 16:57 → FM/S 21:36
PROVIDERS: ADMIT Internal Medicine; ATTEND Nurse Practitioner Acute Care
DX: N39.0 Urinary tract infection, site not specified (principal); Z68.42 Body mass index [BMI] 45.0-49.9, adult; N17.9 Acute kidney failure, unspecified; B96.1 Klebsiella pneumoniae [K. pneumoniae] as the cause of diseases classified elsewhere; I10 Essential (primary) hypertension; E78.5 Hyperlipidemia, unspecified; E11.9 Type 2 diabetes mellitus without complications; L40.0 Psoriasis vulgaris; E66.01 Morbid (severe) obesity due to excess calories; R53.81 Other malaise; S39.012A Strain of muscle, fascia and tendon of lower back, initial encounter; R32 Unspecified urinary incontinence; D17.9 Benign lipomatous neoplasm, unspecified; D72.829 Elevated white blood cell count, unspecified
CPT/HCPCS: 36415; 71046-TC-FY; 76775-TC; 80048; 80053; 81003; 81015; 82565; 82962; 83605; 83735; 84156; 84300; 85025; 86140; 87040; 87086; 87186; 93005; 93306-TC; 99284-25; J0131; J1644; J7030

== ENCOUNTER 2021-01-31 19:00 | Emergency (ER) | payer OTHER ==
[2021-01-31 19:34] VITALS: BP 136/74; PULSE 69; TEMP 98; BMI 42.5
== END 2021-01-31 19:55 | disposition home or self-care (01) ==
LOC: FER 19:00
DX: S30.0XXA Contusion of lower back and pelvis, initial encounter (principal); W07.XXXA Fall from chair, initial encounter
CPT/HCPCS: 99281-25

== ENCOUNTER 2022-10-06 16:17 | Emergency (ER) | payer OTHER ==
[2022-10-06 16:53] VITALS: BP 149/62; PULSE 70; RESP 20; TEMP 98.3; BMI 39.0
[2022-10-06] MEDS ORDERED: methylPREDNISolone NA SUCC 125 MG/2 ML VIAL IVPB ONE (17:03)
[2022-10-06] MEDS ORDERED: ALBUTEROL SO4 2.5/IPRATROPIUM 0.5 INH SOL 3 ML VIAL.NEB. NEB ONE (17:16)
[2022-10-06] MEDS ORDERED: predniSONE 20 MG TABLET (UD) PO ONE (17:33)
[2022-10-06] MEDS ORDERED: SODIUM CHLORIDE 500 ML IV STA (17:34)
[2022-10-06] MEDS: ALBUTEROL SO4 2.5/IPRATROPIUM 0.5 INH SOL 3 ML VIAL.NEB. NEB SCH ×2 (17:42→17:43)
[2022-10-06 17:43] LABS: HEMATOCRIT 40.8 % (32.4-45.2); HEMOGLOBIN 13.9 G/dL (10.7-15.3); MCHC 34.1 g/dl (32.0-36.0); MEAN CELL VOLUME 90.8 fl (80-96); PLATELET COUNT 275.6 10^3/uL (134-434); RBC 4.49 10^6/uL (3.60-5.2); RDW 13.7 % (11.6-15.6); WHITE BLOOD COUNT 9.9 10^3/uL (4.0-10.8)
[2022-10-06] MEDS ORDERED: predniSONE 20 MG TABLET (UD) ONE (17:45)
[2022-10-06 17:56] LABS: INR 1.02 (0.83-1.09); PROTHROMBIN TIME (PATIENT) 11.8 SEC (9.7-13.0)
[2022-10-06 17:59] LABS: ACTIVATED PTT 31.4 SECONDS (25.2-36.5)
[2022-10-06 18:06] LABS: ALBUMIN 4.4 g/dl (3.4-5.0); BILIRUBIN,TOTAL 0.5 mg/dl (0.2-1); BLOOD UREA NITROGEN 27.6 mg/dl (7-18); CREATININE 1.3 mg/dl (0.6-1.3); POTASSIUM 3.3 mmol/L (3.5-5.1); SGOT/AST 10.3 U/L (15-37); SGPT/ALT 12.4 U/L (7-52); TOT PROT 6.6 g/dl (6.4-8.2)
== END 2022-10-06 18:59 | disposition home or self-care (01) ==
LOC: FER 16:17
PROC: 3E0F7GC Introduction of Other Therapeutic Substance into Respiratory Tract, Via Natural or Artificial Opening (ICD-10-PCS; principal; 2022-10-06)
DX: J45.21 Mild intermittent asthma with (acute) exacerbation (principal); R05.1 Acute cough; R07.2 Precordial pain; R07.0 Pain in throat; M79.10 Myalgia, unspecified site; R09.81 Nasal congestion; R53.83 Other fatigue; R63.8 Other symptoms and signs concerning food and fluid intake; R00.2 Palpitations; Z20.822 Contact with and (suspected) exposure to COVID-19
CPT/HCPCS: 0241U-QW; 36415; 71046-TC-FY; 80053; 84484; 85027; 85610; 85730; 93005; 94640; 99285-25